=== PATIENT | female | born 1975 | race Caucasian/White ===

== ENCOUNTER → 2020-11-18 12:46 | Outpatient (BNVA) | payer OTHER, SELFPAY | PROVIDERS: PCP Internal Medicine Endocrinology, Diabetes & Metabolism; Visit Provider Student in an Organized Health Care Education/Training Program | DX: M79.7 Fibromyalgia (principal); Z87.891 Personal history of nicotine dependence; Z79.899 Other long term (current) drug therapy | CPT/HCPCS: 99212 ==

== ENCOUNTER → 2022-04-13 13:02 | Outpatient (BNVA) | payer OTHER, SELFPAY | PROVIDERS: PCP Internal Medicine; Visit Provider Nurse Practitioner Family | DX: M79.7 Fibromyalgia (principal); R51.9 Headache, unspecified; M25.50 Pain in unspecified joint; Z79.899 Other long term (current) drug therapy | CPT/HCPCS: 99212 ==

== ENCOUNTER 2023-07-05 14:33 | Outpatient (AMB) | payer OTHER, SELFPAY ==
[2023-07-05 14:36] VITALS: BP 118/66; PULSE 83; TEMP 36.6; O2SAT 97; BMI 32.5
--- NOTE | 2023-07-05 14:36 | A.OFFVIS_ITS ---
Intake Vital Signs 07/05/23 14:36 Height 5 ft 8 in Weight 214 lb 1.102 oz BMI 32.5 BP 118/66 Blood Pressure Location Rt brachial Position Sitting Pulse 83 Pulse Source Pulse Oximeter Temp 97.9 F Temp Source Skin Pulse Oximetry (%) 97 Intake Visit Reasons: FM Intake Note: Pt last seen by Yoana on 04/13/22, presents today to follow up on FM. Investigative Assistant Required: No Accompanied by: Self / Same As Patient Allergies cephalexin [Keflex] Allergy (Intermediate, Verified 07/05/23 14:38) rash metronidazole [Flagyl] Allergy (Intermediate, Verified 07/05/23 14:38) vomiting Sulfa (Sulfonamide Antibiotics) [SULFA (SULFONAMIDE ANTIBIOTICS)] Allergy (Intermediate, Verified 07/05/23 14:38) HIVES adhesive tape [ADHESIVE TAPE] Allergy (Unknown, Verified 07/05/23 14:38) RASH hydromorphone [From DILAUDID] Allergy (Unknown, Verified 07/05/23 14:38) SEVERE VOMITING latex [LATEX] Allergy (Unknown, Verified 07/05/23 14:38) RASH Penicillins [PENICILLINS] Allergy (Unknown, Verified 07/05/23 14:38) HIVES Medication List - Last Reconciled 07/05/23 by Rachna Sethi MD albuterol sulfate 90 mcg/actuation 2 puffs inhalation Q6H PRN diazepam 2 mg PO DAILY diclofenac sodium 1% (Voltaren) 2 grams topical QID diclofenac sodium 50 mg PO BID duloxetine (Cymbalta) 20 mg PO BEDTIME levothyroxine (Synthroid) 100 mcg PO DAILY lisdexamfetamine (Vyvanse) 40 mg PO DAILY methocarbamol 750 mg PO Q6H PRN paroxetine HCl 20 mg PO DAILY pregabalin 100 mg PO BEDTIME pregabalin 25 mg PO BID HPI HPI Comments History of Present Illness Details This is a 48-year-old female with fibromyalgia who presents for follow- up. She was last seen by Juli Lofton 04/2023. She is on duloxetine and Lyrica. She states that she takes the 100 mg capsule as well as the 2 X 25 mg capsules at night. States that the morning dose can make her drowsy. She continues to have diffuse pain usually in her neck, continues to have brain fog. She was evaluated by by [facility] and received numerous trigger point injections around her neck and shoulder area without much benefit. COUNTS INCLUDE 234 BEDS AT THE [facility] Medical History Fibromyalgia Family History Mother Rheumatoid arthritis Family/Other Multiple sclerosis Other Family history of thyroid disease Social History Alcohol intake: never Patient Tobacco Use Status: Former Tobacco user Years Smoked: qUIT 6 YEARS AGO Review of Systems ENT Reports neck pain Musc Reports myalgias, Reports arthralgias and Reports neck pain Psych Reports abnormal sleep pattern and Reports anxiety Physical Exam Vital Signs: Last Vital Signs Temp 97.9 F 07/05/23 14:36 Pulse 83 07/05/23 14:36 BP 118/66 07/05/23 14:36 Pulse Ox 97 07/05/23 14:36 BMI result Body Mass Index 32.5 Const General: cooperative, healthy appearing and comfortable Nutritional Appearance: obese Orientation/consciousness: patient oriented x3 Limitations: no limitations HEENT Head: Yes normocephalic and Yes atraumatic Mouth: moist mucous membranes Resp Effort & Inspection: normal respiratory effort and able to speak in complete sentences Auscultation: clear to auscultation bilaterally Cardio Rate: regular rate Rhythm: regular rhythm Neuro General: patient oriented x3 Extrem Other: No active synovitis Few fibromyalgia tender points Negative straight leg raise test bilaterally Negative Mojgan test bilaterally Assessment & Plan Assessment & Plan (1) Fibromyalgia: Code(s): M79.7 - Fibromyalgia Plan: This is a 48-year-old female who presents for evaluation of fibromyalgia. We had a long conversation about fibromyalgia today. Discussed management of fibromyalgia with patient. Is a noninflammatory, non-autoimmune central afferent processing disorder leading to a diffuse pain syndrome. Patient follows up regularly with a psychiatrist. I suggested evaluation by a psychotherapist. Try to follow sleep hygiene practices. Consider a referral for a sleep study by her PCP. Discuss CBT for sleep with psychotherapist. Patient would benefit from increased physical activity, patient stated that she was doing better when she was swimming at the gym. Currently she does circuit exercises which caused significant pain and fatigue for 3-4 days after exercise. I suggested going back swimming and aqua therapy Can continue with Cymbalta, prescribed by psychiatrist. Patient states that she takes the entire Lyrica dose at night. Will prescribe lyrica 150 mg nightly. Follow-up in 6 months Plan I spent 26 minutes reviewing patient's chart, evaluating patient, placing orders, counseling patient and documenting in the chart Medications: New pregabalin (Lyrica) 150 mg PO BEDTIME 180 caps 1RF Discontinued pregabalin Discontinued Reason: Doctor's Order 100 mg PO BEDTIME 30 caps 2RF M79.7 - Fibromyalgia pregabalin ; 100 mg capsule for bedtime use Discontinued Reason: Doctor's Order 25 mg PO BID 60 caps 2RF M79.7 - Fibromyalgia Coding Level of Care Code Est Pt Level 4 (45518) Diagnoses Fibromyalgia M79.7
== END 2023-07-05 15:20 | disposition home or self-care (01) ==
PROVIDERS: PCP Internal Medicine; Visit Provider Student in an Organized Health Care Education/Training Program
DX: M79.7 Fibromyalgia (principal)
CPT/HCPCS: 99214

== ENCOUNTER → 2023-07-05 14:33 | Outpatient (BNVA) | payer OTHER, SELFPAY | PROVIDERS: PCP Internal Medicine; Visit Provider Student in an Organized Health Care Education/Training Program | DX: M79.7 Fibromyalgia (principal) | CPT/HCPCS: 99212 ==

== ENCOUNTER 2024-01-03 14:34 | Outpatient (AMB) | payer OTHER, SELFPAY ==
[2024-01-03 14:35] VITALS: BP 112/82; PULSE 90; O2SAT 98; BMI 33.2
--- NOTE | 2024-01-03 14:35 | MHC.OFFVIS ---
Vital Signs 01/03/24 14:35 Height 5 ft 8 in Weight 218 lb 4.122 oz BMI 33.2 BP 112/82 Blood Pressure Location Lt brachial Position Sitting Pulse 90 Pulse Source Pulse Oximeter Pulse Oximetry (%) 98 Oxygen Delivery Method Room Air Intake Visit Reasons: FMS Intake Note: Patient last seen 07/05/23 presents today for follow up. Restorative Coordinator Required: No Accompanied by: Self / Same As Patient Allergies cephalexin [Keflex] Allergy (Intermediate, Verified 01/03/24 14:39) rash metronidazole [Flagyl] Allergy (Intermediate, Verified 01/03/24 14:39) vomiting Sulfa (Sulfonamide Antibiotics) [SULFA (SULFONAMIDE ANTIBIOTICS)] Allergy (Intermediate, Verified 01/03/24 14:39) HIVES adhesive tape [ADHESIVE TAPE] Allergy (Unknown, Verified 01/03/24 14:39) RASH hydromorphone [From DILAUDID] Allergy (Unknown, Verified 01/03/24 14:39) SEVERE VOMITING latex [LATEX] Allergy (Unknown, Verified 01/03/24 14:39) RASH Penicillins [PENICILLINS] Allergy (Unknown, Verified 01/03/24 14:39) HIVES Medication List - Last Reconciled 01/03/24 by Rachna Sethi MD albuterol sulfate 90 mcg/actuation 2 puffs inhalation Q6H PRN diazepam 2 mg PO DAILY diclofenac sodium 1% (Voltaren) 2 grams topical QID diclofenac sodium 50 mg PO BID duloxetine (Cymbalta) 20 mg PO BEDTIME levothyroxine (Synthroid) 100 mcg PO DAILY methocarbamol 750 mg PO Q6H PRN paroxetine HCl 20 mg PO DAILY pregabalin (Lyrica) 150 mg PO BEDTIME HPI Comments Details: This is a 48-year-old female with fibromyalgia who presents for follow-up. She was last seen by Juli Lofton 06/2023. She remains on duloxetine 20 mg daily and Lyrica 150 mg nightly. She uses the methocarbamol sparingly. She states that her muscle pains and fatigue have been much worse recently. She can not think of any trigger. Denies any recent stressor or increased activity. She states that she gets left lower back pain that intermittently radiates to her left lower extremity, she also has pain on the outer aspect of her right hip. States that she was diagnosed with psoriasis in the past and recently she has been having flare-ups affecting the outer aspect of her elbows. She has been doing somatic yoga recently for her neck and her hips which she feels does help. She has difficulty falling and staying asleep. He states that her son keeps having joint dislocation. She wants them to get tested for Saundra-Danlos. [facility] Medical History Psoriasis Fibromyalgia Family History Mother Rheumatoid arthritis Family/Other Multiple sclerosis Other Family history of thyroid disease Social History Alcohol intake: never Patient Tobacco Use Status: Former Tobacco user Years Smoked: qUIT 6 YEARS AGO Review of Systems ENT Reports neck pain Musc Reports back pain, Reports myalgias, Reports arthralgias, Reports neck pain, Reports radiating pain into limb and Reports stiffness Skin/Breast Reports lesions Psych Reports abnormal sleep pattern and Reports anxiety Physical Exam Vital Signs: Last Vital Signs Pulse 90 01/03/24 14:35 BP 112/82 01/03/24 14:35 Pulse Ox 98 01/03/24 14:35 Oxygen Delivery Method Room Air 01/03/24 14:35 BMI result Body Mass Index 33.2 Const General: cooperative, healthy appearing and comfortable Nutritional Appearance: obese Orientation/consciousness: patient oriented x3 Limitations: no limitations HEENT Head: Yes normocephalic and Yes atraumatic Mouth: moist mucous membranes Resp Effort & Inspection: normal respiratory effort and able to speak in complete sentences Auscultation: clear to auscultation bilaterally Cardio Rate: regular rate Rhythm: regular rhythm Skin Other: Very faint patches on both elbows Neuro General: patient oriented x3 Extrem Other: No active synovitis Few fibromyalgia tender points Negative straight leg raise test bilaterally Negative Mojgan test bilaterally right trochanteric bursa area tenderness with negative Frandy's test Assessment & Plan Assessment & Plan (1) Fibromyalgia: Code(s): M79.7 - Fibromyalgia Category: Medical Plan: This is a 48-year-old female who presents for evaluation of fibromyalgia. She remains on duloxetine 20 mg daily prescribed by psychiatrist, recently Paxil was added. Remains on Lyrica 150 mg nightly. Per patient her fibromyalgia symptoms have become a little more severe recently. Advised patient to get a sleep study to rule out obstructive sleep apnea. Continue Lyrica as prescribed. Refilled. Follow-up in 6 months (2) Trochanteric bursitis, right hip: Code(s): M70.61 - Trochanteric bursitis, right hip Category: Medical Plan: I provided patient with a printout of home exercises Plan I spent 26 minutes reviewing patient's chart, evaluating patient, placing orders, counseling patient and documenting in the chart Medications: Refilled pregabalin (Lyrica) 150 mg PO BEDTIME 90 caps 1RF Coding Level of Care Code Est Pt Level 4 (49611) Diagnoses Fibromyalgia M79.7 Trochanteric bursitis, right hip M70.61
== END 2024-01-03 15:11 | disposition home or self-care (01) ==
PROVIDERS: PCP Internal Medicine; Visit Provider Student in an Organized Health Care Education/Training Program
DX: M79.7 Fibromyalgia (principal); M70.61 Trochanteric bursitis, right hip
CPT/HCPCS: 99214

== ENCOUNTER → 2024-01-03 14:34 | Outpatient (BNVA) | payer OTHER, SELFPAY | PROVIDERS: PCP Internal Medicine; Visit Provider Student in an Organized Health Care Education/Training Program | DX: M79.7 Fibromyalgia (principal); M70.61 Trochanteric bursitis, right hip | CPT/HCPCS: 99212 ==

== ENCOUNTER 2024-12-04 15:08 | Outpatient (AMB) | payer OTHER, SELFPAY ==
[2024-12-04 15:13] VITALS: BP 112/66; PULSE 82; O2SAT 99; BMI 34.6
--- NOTE | 2024-12-04 15:13 | A.OFFVIS_ITS ---
Vital Signs 12/04/24 15:13 Height 5 ft 8 in Weight 227 lb 11.8 oz BMI 34.6 BP 112/66 Blood Pressure Location Lt brachial Position Sitting Pulse 82 Pulse Source Pulse Oximeter Pulse Oximetry (%) 99 Oxygen Delivery Method Room Air Intake Visit Reasons: FMS Intake Note: Patient was last seen in the office on 01/03/24. Presents today for follow up on fibromyalgia. Allergies cephalexin [Keflex] Allergy (Intermediate, Verified 12/04/24 15:19) rash metronidazole [Flagyl] Allergy (Intermediate, Verified 12/04/24 15:19) vomiting Sulfa (Sulfonamide Antibiotics) [SULFA (SULFONAMIDE ANTIBIOTICS)] Allergy (Intermediate, Verified 12/04/24 15:19) HIVES adhesive tape [ADHESIVE TAPE] Allergy (Unknown, Verified 12/04/24 15:19) RASH hydromorphone [From DILAUDID] Allergy (Unknown, Verified 12/04/24 15:19) SEVERE VOMITING latex [LATEX] Allergy (Unknown, Verified 12/04/24 15:19) RASH Penicillins [PENICILLINS] Allergy (Unknown, Verified 12/04/24 15:19) HIVES Medication List - Last Reconciled 12/04/24 by Tonya Mota MD albuterol sulfate 90 mcg/actuation 2 puffs inhalation Q6H PRN dextroamphetamine-amphetamine 10 mg ER 1 cap PO DAILY diazepam 2 mg PO DAILY diclofenac sodium 1% (Voltaren) 2 grams topical QID diclofenac sodium 50 mg PO BID duloxetine (Cymbalta) 20 mg PO BEDTIME levothyroxine (Synthroid) 100 mcg PO DAILY methocarbamol 750 mg PO Q6H PRN pregabalin 150 mg PO BEDTIME 90 days sertraline 50 mg PO DAILY HPI Comments Details: Patient is a 49-year-old female with hypothyroidism, depression/anxiety, psoriasis, asthma and fibromyalgia here today for follow up Interval History: Patient last seen 01/03/[address] Sethi. At that time she was on duloxetine 20 mg daily and Lyrica 150 mg nightly. Methocarbamol p.r.n.. At that visit she was complaining of acute worsening of her muscle pains and fatigue without any known trigger, recent stressor or increased activity. No active synovitis but had few fibromyalgia tender points. Light exercise and stretching was recommended and she was also advised to get a sleep study to rule out obstructive apnea. Today patient is hoping to change her medications. She says the pregabalin and the duloxetine give her a lot of brain fog I just looking for other medication options. Rheumatologic History: Fibromyalgia without evidence of inflammatory arthritis Current Rheumatology Medication(s): Pregabalin 150 mg b.i.d. Cymbalta 60mg nightly (given by another provider) PFSH Medical History Psoriasis Fibromyalgia Family History Mother Rheumatoid arthritis Family/Other Multiple sclerosis Other Family history of thyroid disease Social History Alcohol intake: never Patient Tobacco Use Status: Former Tobacco user Years Smoked: qUIT 6 YEARS AGO Review of Systems Const Details: Review of Systems Constitutional: Denies fever, chills, weight loss ENT: Denies vision changes, eye pain or eye redness, dental caries, dry mouth GI: Denies nausea, vomiting, diarrhea, abdominal pain, change in BM Pulm: Denies SOB, WORLEY, hemoptysis, wheezing Cards: Denies chest pain, palpitations Skin: Denies Raynaud's, rash, nail changes, photosensitivity, [employer]: Denies headaches, weakness, paresthesias, recurrent falls MSK: as per HPI All other systems reviewed and are unremarkable except noted above Physical Exam Vital Signs: BMI result Body Mass Index 34.6 Vital signs reviewed Physical Examination CONSTITUITIONAL Patient alert and cooperative. Well appearing and in no apparent painful distress HEENT Conjunctiva and sclera clear. ?Pupils equal round and reactive to light. ?No lymphadenopathy. ? CHEST/RESPIRATORY SYSTEM Normal respiratory effort and able to speak in complete sentences. ?Clear to auscultation bilaterally. ?No crackles, rales, rhonchi, wheezes heard. CARDIAC SYSTEM Regular rate and rhythm. ?S1 and S2 heard no murmurs. 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 No deformities noted. ?No synovitis noted to the MCPs, PIPs or DIPs. ?No tenderness to palpation of these joints. Wrists: ?Full range of motion at the wrists without pain. ?No tenderness to palpation or synovitis noted to the wrists. Elbows: Full range of motion without pain. No tenderness, weakness, swelling, increased warmth or erythema. Shoulders: Full range of motion without pain. No tenderness, weakness, swelling, increased warmth or erythema. Hips: Full range of motion without pain. Hip bursa: Tenderness to palpation Knees: ?Full range of motion. ?No tenderness, swelling, increased warmth or erythema.?No effusion or crepitations Ankles: Full range of motion. ?No tenderness, swelling, increased warmth or erythema.? Feet: ?Negative squeeze test. ?No tenderness to palpation or swelling of the M TPs. Tender points:?Tenderness to palpation of the bilateral trapezius, supraspinatus, greater trochanters, anterior costochondral junctions, bilateral gluteal areas, bilateral suboccipital muscle insertions SKIN Skin intact without rashes. Results Reviewed Results Reviewed: No recent labs to review Assessment & Plan Assessment & Plan (1) Fibromyalgia: Code(s): M79.7 - Fibromyalgia Category: Medical Plan: #Fibromyalgia Patient is a 49-year-old female with psoriasis now complicated by fibromyalgia. Previously evaluated for psoriatic arthritis however there is no evidence of dactylitis, enthesitis or inflammatory arthritis. She is currently on pregabalin and duloxetine for her fibromyalgia however is requesting a change of medications. Tried gabapentin in the past but this was associated with side effects. Discussed milnacipran and 1 so weak naltrexone and patient is willing to try these medications. Plan - Naltrexone 25mg once a week - Milnacipran: 12.5 mg daily for 1 week then 12.5 mg twice a day for 1 week then 25 mg twice a day for 1 week then 50 mg twice a day as maintenance - RTC 3 months - Stop pregabalin - Stop cymbalta Plan I spent 32 minutes reviewing the record and labs, taking a history, examining the patient, discussing the treatment plan, ordering diagnostic work up and documenting in the medical record Medications: New milnacipran After completing the 2 weeks on the 12.5mg tablets and then 1 week on the 25mg tablets Take 1 tablet twice a day as a maintenance dose 50 mg PO BID 180 tabs 1RF M79.7 - Fibromyalgia naltrexone 25 mg (1/2 x 50 mg) PO QWEEK 90 days 6 tabs 1RF M79.7 - Fibromyalgia milnacipran Take one tablet daily for 1 week then one tablet twice a day for 1 week 12.5 mg PO BID 21 tabs 0RF M79.7 - Fibromyalgia milnacipran 25 mg PO BID 14 tabs 0RF M79.7 - Fibromyalgia Discontinued pregabalin Discontinued Reason: Doctor's Order 150 mg PO BEDTIME 90 days 90 caps 1RF M79.7 - Fibromyalgia Coding Level of Care Code Est Pt Level 4 (42967) Complex EM visit Add On G2211 Diagnoses Fibromyalgia M79.7
--- OUTSIDE RECORDS SUMMARY | 2024-12-04 18:08 | XMS_ITS | Data Portability ---
Author Organization [facility] Pain Manage ent, PAIN OFFICE Address [address],[facility] [address] [place] [address] Assessment Encounter Date Assessment Date Assessment LastModified by Organization Details LastModified Time 01/26/2017 01/26/2017 Danyelle Johnson is a 41 year old woman with complaints of neck pain radiating into left upper back . On exam, she has trigger points in her left trapezius muscle. MRI Cervical spine shows stable minimal degenerative changes at C 5-6 and C 6-7 levels . She has trialed physical therapy with some pain benefit . She is currently being seen at [facility] and receiving injections. I have advised her to continue with treatments at one pain center. Her cervical MRI is relatively benign. Hence I do not think a trial of cervical epidural steroid injection is warranted at this time. [email or web address] Not available 03/09/2017 15:41:25 Plan of Treatment Reminders Order Date Submit Date Provider Last Modified By Organization Details Last Modified Time Details Appointments None record ed. Lab None record ed. Referral None record ed. Procedures None record ed. Surgeries None record ed. Imaging None record ed. Medication Orders None record ed. Patient TargetsNo targets recorded. Patient Instructions Encounter Date Encounter Id Patient Instructions Last Modified By Organization Details Last Modified Time 01/26/2017 [id number] She was advised to continue with activities as tolerated . [email or web address] Not available 03/09/2017 15:41:42 Reason for Referral None Reported. Procedures Surgical History Date Name Laterality Status Provider Name and Address Organization Details Recorded Time Tonsillectomy completed Karena Petty MA [facility] 01/26/2017 14:06:14 Imaging Results None recorded. Procedure Notes None recorded. Medical Equipment None Reported. Allergies Allergen ID Allergen Name Allergen Category Reaction Reaction Severity Criticality Documentation Date Start Date Code Code System Note Provider Name and Address Organization Details Recorded Time 92045 Product containin g penicilli n (product) medicatio n hives Not available Not available 01/26/2017 19677 8001 SNOMED Karena turcios [facility] 7 13:57:47 76458 Substance with sulfonami de structure and antibacte rial mechanism of action (substanc e) medicatio n hives Not available Not available 01/26/2017 31660 8003 SNOMED Karena turcios, [facility] 7 13:58:06 Medications Name Sig Start Date Stop Date Status Note LastModified by Organization Details LastModified Time bupropion HCl SR 150 mg tablet,12 hr sustained-r elease 01/26 completed Not Available Not Available Not Available nabumetone 750 mg tablet 01/26 completed Not Available Not Available Not Available ibuprofen 800 mg tablet active Not Available Not Available Not Available tizanidine 4 mg tablet TAKE 1 Tablet BY MOUTH THREE TIMES DAILY NEEDED FOR MUSCLE SPASMS active Not Available Not Available No t Available prednisone 20 mg tablet TAKE 2 TABLETS BY MOUTH DAILY WITH FOOD FOR 7 DAYS 01/26 completed Not Available Not Available Not Available ciprofloxac in 500 mg tablet TAKE 1 TABLET BY MOUTH 2 TIMES DAILY 01/26 completed Not Available Not Available Not Available levothyroxi ne 100 mcg tablet TAKE 1 TABLET BY MOUTH DAILY. active Not Available Not Available No t Available lorazepam 0.5 mg tablet TAKE 1 TABLET BY MOUTH EVERY 6 HOURS NEEDED ANXIETY active Not Available Not Available No t Available paroxetine 30 mg tablet TAKE 1 TABLET BY MOUTH EVERY MORNING 01/26 completed Not Available Not Available Not Available paroxetine 20 mg tablet TAKE 1 TABLET BY MOUTH EVERY MORNING. active Not Available Not Available No t Available gabapentin 300 mg capsule 01/26 completed Not Available Not Available Not Available gabapentin 100 mg capsule 01/26 completed Not Available Not Available Not Available lysine 500 mg tablet Take every day by oral route. active Not Available Not Available No t Available diazepam 5 mg tablet 01/26 completed Not Available Not Available Not Available tinidazole 500 mg tablet TAKE 4 TABLETS BY MOUTH ONCE 01/26 completed Not Available Not Available Not Available Lyrica 75 mg capsule TAKE 1 TO 2 CAPSULES BY MOUTH EVERY EVENING 01/26 completed Not Available Not Available Not Available Ventolin HFA active Not Available Not Available Not Available diclofenac 1 % topical gel active Not Available Not Available Not Available Multi Vitamin active Not Available Not Available Not Available Vitals Date Recorded Heart rate Oxygen saturation Oxygen saturation in Arterial blood by Pulse oximetry Body height Body weight Body mass index (BMI) Systolic blood pressure Diastolic blood pressure Provider Name and Address Organization Details Last Updated DateTime 7 77 /min 98 % 98 % 172.72 cm 732088. 17 g 36.5 kg/m2 129 mm[Hg] 85 mm[Hg] Karena Petty [facility] Pain Management 7 13:55:34 Social History Question Answer Notes LastModified by Organizat ion Details LastModified Time Tobacco Smoking Status Former Smoker Quit x 2 months Not Available [employer] 06/26/2020 03:16:12 What Is Your Level Of Alcohol Consumption? Occasional [id number] Information not available 06/26/2020 Are You Currently Employed? Yes [employer] [id number] Information not available 06/26/2020 Which Illicit Or Recreational Drugs Have You Used? 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 With Others Children Information not available 01/26/2017 Marital Status Informatio n not available 01/26/2017 How Many Years Have You Smoked Tobacco? 5 [id number] Information not available 06/26/2020 Sex: Unknown Functional Status None recorded. Mental Status None recorded. Family History Relationship Description Onset Age of this Age Resolved Age Notes LastModified by Organization Details LastModified Time Mother Rheumatoid arthritis Not available 2016 14:03:03 Father Malignant neoplastic disease Pancre atic Not available 01/26/2017 14:03:28 Medical History Condition Response Hypothyroidism Y Arthritis Y Headache Y Asthma Y Gynecological HistoryNo gynecological history recorded. Obstetrics History GPAL:G 0 P 0 0 0 0 Past Encounters Encounter ID Performer Location Encounter Start Date Encounter Closed Date Diagnosis/Indication Diagnosis SNOMED-CT Code Diagnosis ICD10 Code Diagnosis Note [id number] Liliana Merino MD PAIN OFFICE [address] [facility],[address] [place] [address] 01/26/2017 13:24:53 02/16/2017 13:54:26 Degeneration of cervical intervertebral disc 60047695 M50.30 Cervical radiculopathy 43029018 M54.12 Muscle pain 44517477 M79 .1 Health Concerns Section Related Observation LastModified by Organization Detai ls LastModified Time None Recorded Concern Status LastModified by Organization Details LastModified Time None Recorded Advance Directives Directive None Recorded Payers Encounter Date Sequence Insurance Name Policy Number Policy Olvera Covered Member ID Olvera Member ID Guarantor Name 01/26/2017 1 [facility] [id number] Danyelle Johnson [id number] Danyelle Johnson 01/26/2017 1 [place] [facility] Danyelle Johnson [id number] Danyelle Johnson Notes Date Note Type Note Provider Name and Address Organization Details Recorded Time 01/26/2017 text/html Danyelle Johnson is a 41 year old woman with complaints of neck pain radiating into left upper back . The pain started after a fall at home in August 2013. She was catching a person who was feeling unwell at home and had a pull on the neck which started her pain. She describes the pain as a sharp stabbing pain in her neck which radiates into her left shoulder and the pain is at times aching and throbbing in nature. Current pain level is 8-10/10. Pain is aggravated by turning the neck and using the left arm. Nothing relieves the pain. She has no history of numbness or weakness. She has no history of bladder or bowel incontinence.She had physical therapy at [facility] in [place] with minimal pain benefit.She had facet joint injections at [facility] and then trigger point injections in November 2016.She has also trialed lyrica which helped .MRI Cervical spine shows stable minimal degenerative changes at C5-6 and C6-7 levels Liliana Merino MD [address] , [address], [place], [address], [place] [facility] 03/15/2017 08:36:38 OBGyn Episode No OBEpisode recorded.
--- OUTSIDE RECORDS SUMMARY | 2024-12-04 18:08 | XMS_ITS | Clinical Summary ---
Author Organization [facility] Address [address] [place], [place] [id number] Phone Care Team Providers Care Coil Placer Name Role Phone Yadira Marcano MD Primary Care Provider [phone] Social History Tobacco Use Types Packs/Day Years Used Date Smoking Tobacco: Never Assessed Education Answer Date Recorded Are you interested in more education? Not on neli e 01/07/2023 Are you concerned about learning? Not on file 01/07/2023 No 01/07/2023 No 01/07/2023 Digital Access Answer Date Recorded No 02/07/2023 No 02/07/2023 Reliable internet access at home? Not on file 02/07/2023 Device with a working camera? Not on file Sex and Gender Information Value Date Recorded Sex Assigned at Not on file Gender Identity Not on file Sexual Orientation Not on file Plan of Treatment Not on file Medical Devices Not on file Care Teams Coil Placer Relationship Specialty Start Date End Date Yadira Marcano MD [address] [place] [address] PCP - General Internal Medicine 12/23/20 Additional Source Comments The information contained in this document represents components of the legal health record. It is not the complete legal health record.[facility]
--- OUTSIDE RECORDS SUMMARY | 2024-12-04 18:09 | XMS_ITS | Encounter Summary ---
Author Organization [facility] Address [address] [place] [address] Phone Care Team Providers Care Boat Outfitting Supervisor Name Role Phone Yadira Marcano MD Primary Care Provider [phone] Encounter Details Date Type Department Care Team (Latest Contact Info) Description 01/01/2021 Ancillary Orders [facility] [address] [place] [address] Nikhil Castillo DO [address] [place] [address] [email or web address] SOB (shortness of breath) Social History Tobacco Use Types Packs/Day Years Used Date Smoking Tobacco: Never Assessed Sex and Gender Information Value Date Recorded Sex Assigned at Not on file Gender Identity Not on file Sexual Orientation Not on file documented as of this encounter Plan of Treatment Not on file documented as of this encounter Results * Holter Monitor 24 Hours (01/01/2021 8:31 AM EDT) Anatomical Region Laterality Modality Heart Other Narrative 01/01/2021 12:22 PM EDT Holter monitor report Indication shortness of breath Findings: The underlying rhythm is sinus rhythm with average heart rate 77 bpm, minimum rate 47 bpm, maximal heart rate 121 bpm. There were very rare isolated PVCs. There was no significant atrial ectopy. No abnormal arrhythmias. Conclusion: Normal Holter monitor. Procedure Note Emory Rider MD - 01/01/2021 Holter monitor report Indication shortness of breath Findings: The underlying rhythm is sinus rhythm with average heart rate 77 bpm,minimum rate 47 bpm, maximal heart rate 121 bpm. There were very rare isolated PVCs. There was no significant atrial ectopy. No abnormal arrhythmias. Conclusion: Normal Holter monitor. Nikhil A Arcoleo DO [facility] ORDER[facility]LES documented in this encounter Visit Diagnoses Diagnosis SOB (shortness of breath) Shortness of breath SOB (shortness of breath) Shortness of breath documented in this encounter Care Teams Boat Outfitting Supervisor Relationship Specialty Start Date End Date Yadira Marcano MD [address] [place] [address] PCP - General Internal Medicine 12/23/20 documented as of this encounter Additional Source Comments The information contained in this document represents components of the legal health record. It is not the complete legal health record.[facility]
--- OUTSIDE RECORDS SUMMARY | 2024-12-04 18:09 | XMS_ITS | Data Portability ---
Author Organization [place] - [facility], Allergy Address [address] [address] Care Team Providers Care Asbestos Wire Finisher Name Role Phone GIO SHAWE Primary Care Provider [phone] Assessment Encounter Date Assessment Date Assessment LastModified by Organization Details LastModified Time 09/26/2024 09/26/2024 Patient with prior history of tonsillectomy, allergy and mild intermittent asthma presents with discomfort left tonsil region. She was noted several years ago to have a residual lymphoid follicle. Examination shows a 1 cm follicle in the tonsil fossa and some small prominent lymphoid tissue in the glossotonsillar sulcus. No ulceration or exudate. I suspect this is likely reactive. I have suggested we switch her allergy regimen to cetirizine and budesonide and arrange for repeat allergy testing. If she has persistent difficulties we can consider an exam under anesthesia and biopsy. Office biopsy limited by moderate gag reflex alba Not available 09/26/2024 08:52:42 Plan of Treatment Reminders Order Date Submit Date Provider Last Modified By Organization Details Last Modified Time Details Appointments Test Results 15 2024 08:30A M MUSHTAQ WORKMAN MD Not available Not available Not available Lab None recorded. Referral None recorded. Procedures allergy testing, skin prick (PROC) 2024 025 [email or web address] Not available 10/17/2024 12:17:48 intraderm al allergy skin testing (PROC) 2024 025 [email or web address] Not available 10/17/2024 12:17:48 pulmonary function test procedure (PROC) 2024 025 [email or web address] Not available 10/17/2024 12:17:48 pulse oximetry (PROC) 2024 025 [email or web address] Not available 10/17/2024 12:17:48 Surgeries laryngosc opy, direct operative with operating microscop e or telescope with biopsy (SURG) 2024 025 [email or web address] Not available 09/26/2024 10:05:59 Imaging None recorded. Medication Orders budesonid e 32 mcg/actua tion nasal spray 2024 025 [id number], [address] [place], [address], 09/26/2024 08:54:12 cetirizin e 10 mg tablet 2024 025 [id number], [address] [place], [address], 09/26/2024 08:54:12 Patient TargetsNo targets recorded. Patient InstructionsNo instructions recorded. Reason for Referral None Reported. Results Created Date Observation Date Name Description Value Unit Range Abnormal Flag Note LastModifiedBy Organization Detail LastModifiedTime 11/16/1911/05/2024 clini jonny photo * No observ ation record ed. [email or web address] Not Available 03/2025 09:32:41 Result Notes None recorded. 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; Note: Date Diagnosed: 02/21/2018 10:40 AM (D10.4) Not Available [facility] 4 03:22:44 Mass of neck 785039358 Active 2017 Localized swelling, mass and lump, neck; Note: Date Diagnosed: 02/21/2018 10:41 AM (R22.1) Not Available [facility] 4 03:22:44 Neck swelling 654663490 Active 2017 Localized swelling, mass and lump, neck; Note: Date Diagnosed: 02/21/2018 10:41 AM (R22.1) Not Available [facility] 4 03:22:44 Non-toxic uninodula r goiter 617190243 Active 2017 Nontoxic single thyroid nodule; Note: Date Diagnosed: 02/21/2018 10:40 AM (E04.1) Not Available [facility] 4 03:22:43 Allergic rhinitis 03766452 Active 2024 MUSHTAQ STOCK MD [address] [facility],[place] [address], [place], [address] , [facility] - [facility] 5 08:52:53 Lesion of pharynx Active 2024 MUSHTAQ STOCK MD [address] [place] [address],[place] [address], [place], [place], [address] , [facility] - [facility] 5 08:53:00 Mild intermitt ent asthma 865477818 Active 2024 MUSHTAQ STOCK MD [address] [place] [address],[place] [address], [place], [address] , [facility] - [facility] 5 08:53:05 Problem Notes None recorded. Procedures Surgical History Date Name Laterality Status Provider Name and Address Organization Details Recorded Time 11/05/19 Excise pharynx lesion completed MUSHTAQ AYALA MD [address] [place] [address],[place] [address], [place], [address], [facility] 11/05/2024 11:38:43 11/05/19 25 Laryngoscopy w/bx & op scope completed MUSHTAQ AYALA MD [address] [place] [address],[place] [address], [place], [address], [facility] 11/05/2024 11:38:53 Imaging Results Imaging Date Name Status LastModified by Organiz ation Details LastModified Time 11/05/2024 clinical photo* completed [email or web address] Information not available 11/15/2024 09:32:41 Procedure Notes None recorded. Medical Equipment None Reported. Allergies Allergen ID Allergen Name Allergen Category Reaction Reaction Severity Criticality Documentation Date Start Date Code Code System Note Provider Name and Address Organization Details Recorded Time 864695 Product containin g penicilli n (product) medicatio n hives other moderate Not available Not available 01/23/2024 38245 8001 SNOMED Gil Reyes null, [place] - [facility] 5 08:37:12 641796 Substance with sulfonami de structure and antibacte rial mechanism of action (substanc e) medicatio n hives other moderate Not available Not available 01/23/2024 20966 8003 SNOMED Gil Reyes null, [place] - [facility] 5 08:37:12 965931 Flagyl medicatio n hives moderate Not available 09/26/2024 80401 6 RxNorm Gil Reyes null, [place] - [facility] 5 08:37:12 574646 Dilaudid medicatio n vomiting severe Not available 09/26/2024 79181 3 RxNorm Gil Reyes null, [place] - [facility] 5 08:37:12 Medications Name Sig Start Date Stop Date Status Note LastModified by Organization Details LastModified Time cyclobenz aprine 10 mg tablet TAKE 1 TABLET BY MOUTH AT BEDTIME NEEDED FOR MUSCLE SPASMS. 09/26 completed Not Available Not Available Not Available budesonid e 32 mcg/actua tion nasal spray Take 2 sprays every day by nasal route. 2024 active Not Available Not Available Not Avai lable cetirizin e 10 mg tablet Take 1 tablet every day by oral route in the evening. 2024 active Not Available Not Available Not Avai lable meloxicam 15 mg tablet TAKE 1 TABLET BY MOUTH EVERY DAY DIRECTED 09/26 completed Not Available Not Available Not Available ondansetr on HCl 4 mg tablet TAKE 1 TABLET BY MOUTH EVERY 8 HOURS NEEDED FOR NAUSEA FOR UP TO 7 DAYS. 09/26 completed Not Available Not Available Not Available prednison e 20 mg tablet TAKE 3 TABS FOR 3 DAYS, TAKE 2 TABS FOR 3 DAYS, TAKE 1 TAB FOR 3 DAYS 09/26 completed Not Available Not Available Not Available Synthroid 100 mcg tablet TAKE 1 TABLET BY MOUTH DAILY. SYNTHROI D BRAND ONLY, NO ALTERNAT ES active Not Available Not Available No t Available amitripty line 25 mg tablet 01/28 completed Medicati on ID: [id number] D uration Value: 30 Brand Name: amitript yline Se nd Method: E-Prescr ibed Sub s Allowed: subs OK Speci al Instruct ion: TAKE 1 TABLET BY MOUTH TWICE A DAY Medi cationGe nericNam e: amitript yline Not Available Not Available Not Available diazepam 2 mg tablet 01/28 completed Medicati on ID: [id number] B rand Name: diazepam Send Method: E-Prescr ibed Sub s Allowed: subs OK Medic ationGen ericName : diazepam Not Available Not Available Not Available paroxetin e 20 mg tablet TAKE 1 TABLET BY MOUTH EVERY DAY 09/26 completed Not Available Not Available Not Available dextroamp hetamine- amphetami ne ER 10 mg 24hr capsule,e xtend release TAKE 1 CAPSULE BY MOUTH EVERY DAY active Not Available Not Available No t Available diclofena c sodium 50 mg tablet,de layed release 01/28 completed Medicati on ID: [id number] B rand Name: diclofen ac sodium S end Method: E-Prescr ibed Sub s Allowed: subs OK Medic ationGen ericName : diclofen ac sodium Not Available Not Available Not Available paroxetin e 40 mg tablet TAKE 1 TABLET BY MOUTH EVERY DAY 09/26 completed Not Available Not Available Not Available sertralin e 50 mg tablet TAKE 1 TABLET BY MOUTH DAILY active Not Available Not Available No t Available dextroamp hetamine- amphetami ne ER 15 mg 24hr capsule,e xtend release TAKE 1 CAPSULE BY MOUTH EVERY DAY 09/26 completed Not Available Not Available Not Available escitalop aliya 10 mg tablet 01/28 completed Medicati on ID: [id number] B rand Name: escitalo pram oxalate Send Method: E-Prescr ibed Sub s Allowed: subs OK Medic ationGen ericName : escitalo pram oxalate Not Available Not Available Not Available nitrofura ntoin monohydra te/macroc rystals 100 mg capsule TAKE 1 CAPSULE BY MOUTH TWICE A DAY FOR 7 DAYS 09/26 completed Not Available Not Available Not Available duloxetin e 20 mg capsule,d elayed release TAKE 1 CAPSULE BY MOUTH ONCE DAY 09/26 completed Not Available Not Available Not Available pregabali n 25 mg capsule 01/28 completed Medicati on ID: [id number] B rand Name: pregabal in Send Method: E-Prescr ibed Sub s Allowed: subs OK Medic ationGen ericName : pregabal in Not Available Not Available Not Available pregabali n 150 mg capsule TAKE 1 CAPSULE BY MOUTH EVERY DAY AT BEDTIME FOR 90 DAYS active Not Available Not Available No t Available Lyrica 100 mg capsule 150 mg every day by oral route. 2021 active Not Available Not Available Not Avai lable Jen 09/26 completed Medicati on ID: [id number] B rand Name: jen Send Method: E-Prescr ibed Sub s Allowed: subs OK Medic ationGen ericName : jen Not Available Not Available Not Available Cymbalta 2021 active Medicati on ID: [id number] B rand Name: Cymbalta Send Method: E-Prescr ibed Sub s Allowed: subs OK Medic ationGen ericName : Cymbalta Not Available Not Available Not Available omeprazol e 20 mg tablet,de layed release by mouth 09/25 completed Medicati on ID: [id number] P rescribe d By Name: Moy Hansen MD Brand Name: omeprazo le Send Method: E-Prescr ibed Sub s Allowed: subs OK Speci al Instruct ion: Take 1 tablet by mouth every day before breakfas t Medica tionGene ricName: omeprazo le Not Available Not Available Not Available Flonase Allergy Relief active Not Available Not Available Not Available Vitals Date Recorded Body height Body mass index (BMI) Body weight Provider Name and Address Organization Details Last Updated DateTime 09/26/2024 172.72 cm 34.1 kg/m2 087389.69 g Gil Reyes [place] - [facility] 09/26/2024 08:43:43 Date Recorded Systolic blood pressure Diastolic blood pressure Provider Name and Address Organization Details Last Updated DateTime 09/26/2024 118 mm[Hg] 74 mm[Hg] MUSHTAQ AYALA MD [address] [place] [address], [address], [place] - [facility] 09/26/2024 08:57:24 Social History None recorded. Functional Status None recorded. Mental Status None recorded. Family History Nothing Reported. Medical History Condition Response Allergies/Hayfever Y Heart Problems N Anxiety Y Tonsil Infections N Emphysema N Migraines Y Thyroid Problems Y Glaucoma N Depression Y COPD N Developmental Delay N Nasal or Sinus Problems Y Anemia N Immune System Disorder N Anesthesia Complications N Heart Attack (ND) N Other Skin Condition Y Diabetes N Rhinitis N Bleeding Disorder N Food Allergy N Arthritis Y Hearing Loss N Hyperlipidemia N Cancer N Stroke N Dementia N Nasal polyps N Asthma Y Sleep Disorder N GERD/Reflux N High Cholesterol Y Liver Disease N Headaches Y Fibromyalgia Y Hypertension N Speech Delay N Kidney Disease N Gynecological HistoryNo gynecological history recorded. Obstetrics History GPAL:G 0 P 0 0 0 0 Past Encounters Encounter ID Performer Location Encounter Start Date Encounter Closed Date Diagnosis/Indication Diagnosis SNOMED-CT Code Diagnosis ICD10 Code Diagnosis Note [id number] MUSHTAQ STOCK MD [facility] [address] [address] 09/26/2024 08:15:03 09/26/2024 08:58:24 Allergic rhinitis 15057138 J30.9 Lesion of pharynx 619262 9376 2102 J39.2 Mild inter mittent asthma 910940473 J45.20 Health Concerns Section Related Observation LastModified by Organization Detai ls LastModified Time None Recorded Concern Status LastModified by Organization Details LastModified Time None Recorded Advance Directives Directive None Recorded Payers Encounter Date Sequence Insurance Name Policy Number Policy Olvera Covered Member ID Olvera Member ID Guarantor Name 09/26/2024 1 [facility] (MEDICAID REPLACEMENT - O) [id number] Danyelle Johnson [id number] Danyelle Johnson Notes Date Note Type Note Provider Name and Address Organization Details Recorded Time 09/26/2024 text/html Patient with history of environmental allergies for which she takes loratadine and occasional fluticasone nasal spray seen for an opinion regarding lymphoid follicle on the left tonsil region. This was noted several years ago by Dr. Hansen she feels her throat is irritated. No ear pain or swallowing issues. Hx of mild intermittent asthma No fever, chills or night sweatsNon-smoker MUSHTAQ AYALA MD [address] [place] [address], [place], [address], [place] - [facility] 09/26/2024 13:27:39 OBGyn Episode No OBEpisode recorded.
--- OUTSIDE RECORDS SUMMARY | 2024-12-04 18:09 | XMS_ITS | Continuity of Care Document ---
Author Organization [facility] ter Address [address] [place] [id number]- Care Team Providers Care Anatomic Pathologist Name Role Phone Not on Staff, PCP Primary Care Physician Unavail able Encounter [facility] Date(s): 11/05/24 - 11/05/[address] [id number] Discharge Disposition: A-D/C Home Attending Physician: Nura Benson MD Admitting Physician: Nura Benson MD Referring Physician: Nura Benson MD Encounter Type: Disch Daystay Allergies, Adverse Reactions, Alerts Substance Criticality Severity Reaction Reaction Severity Status penicillin Active sulfADIAZINE Active Dilaudid Unable to assess criticality Persistent Moderate Active Latex Active Immunizations Given and Recorded Vaccine Date Status Refusal Reason FluLaval (oldterm) 1 06/15/12 Given hepatitis B adult vaccine 2 11/28/11 Given hepatitis B adult vaccine 05/27/11 Given hepatitis B adult vaccine 3 04/22/11 Given influenza virus vaccine, inactivated 05/27/11 Give n influenza virus vaccine, inactivated 09/11/10 Give n Measles/Mumps/Rubella Virus Vaccine 04/22/11 Given tetanus-diphtheria toxoids (Td) 07/22/10 Given 1Admin Note: Gave the VIS 03-12-2012 2Admin Note: # 3 3Admin Note: 1st of 3 injections Medications amphetamine-dextroamphetamine 10 mg oral capsule, extended release TAKE 1 CAPSULE BY MOUTH EVERY DAY Start Date: 11/01/24 Status: Ordered Repeat number: 1 DiphenhydrAMINE = 12.5 mg, By Mouth, Daily at bedtime, PRN as needed for sleep, 0 Refills, Maintenance, 11/25/20 8:26:00 PM EDT, Partial fill upon patient request if the prescription is for a schedule II opioid drug. Start Date: 11/25/20 Status: Ordered Repeat number: 1 duloxetine 20 mg oral enteric coated capsule TAKE 1 CAPSULE BY MOUTH ONCE DAY Start Date: 11/01/24 Status: Ordered Repeat number: 1 famotidine 20 mg oral tablet 20 mg, 1, tablet, By Mouth, Daily at bedtime, # 30 tablet, Refills 0, Tot. Refills 0, Maintenance, 08/17/20 9:19:00 PM EST, Route to Pharmacy Electronically, [facility]/pharmacy #[id number], Partial fill upon patient request if the prescription is for a schedule II opioid drug., 173, cm, 08/17/20 17:56:00 EST, Height, 103.6, kg, 08/17/20 17:56:00 EST, Dry Weight Start Date: 08/17/20 Status: Ordered Quantity: 30.0 Unit: tablet Repeat number: 1 levothyroxine 0.088 mg oral tablet 1 tablet = 0.088 mg, By Mouth, Daily, # 30 tablet, 3 Refills, Maintenance, 07/31/12 3:39:08 PM EST,Tablet, [facility]/pharmacy #[id number] Start Date: 07/31/12 Stop Date: 11/28/12 Status: Ordered Quantity: 30.0 Unit: tablet Repeat number: 4 Lexapro 10 mg oral tablet 1 tablet = 10 mg, By Mouth, Daily, # 30 tablet, 0 Refills, Maintenance, 07/09/21 10:20:00 AM EDT, Tablet, Partial fill upon patient request if the prescription is for a schedule II opioid drug. Start Date: 07/09/21 Status: Ordered Quantity: 30.0 Unit: tablet Repeat number: 1 Lyrica 100 mg oral capsule 1 capsule = 100 mg, By Mouth, Daily at bedtime, # 60 capsule, 0 Refills, Maintenance, 08/17/20 6:02:00 PM EST, Capsule, Partial fill upon patient request if the prescription is for a schedule II opioid drug. Start Date: 08/17/20 Status: Ordered Quantity: 60.0 Unit: capsule Repeat number: 1 Lyrica 25 mg oral capsule 1 capsule = 25 mg, By Mouth, Daily, 0 Refills, Maintenance, 08/17/20 6:02:00 PM EST, Capsule, Partial fill upon patient request if the prescription is for a schedule II opioid drug. Start Date: 08/17/20 Status: Ordered Repeat number: 1 Melatonin = 3 mg, By Mouth, Daily at bedtime, 0 Refills, Maintenance, 11/25/20 8:25:00 PM EDT, Partial fill upon patient request if the prescription is for a schedule II opioid drug. Start Date: 11/25/20 Status: Ordered Repeat number: 1 ProAir HFA 90 mcg/inh inhalation aerosol with adapter 2 puffs, Inhalation, 4 times a day, PRN Wheezing/Shortness of Breath, # 1 each, 1 Refills, Maintenance, wheezing, 06/15/12 3:57:32 PM EDT, [facility]/pharmacy #[id number] Start Date: 06/15/12 Stop Date: 08/14/12 Status: Ordered Quantity: 1.0 Unit: each Repeat number: 2 sertraline 50 mg oral tablet TAKE 1 TABLET BY MOUTH DAILY Start Date: 11/01/24 Status: Ordered Repeat number: 1 Valium 2 mg oral tablet 1 mg, 0.5, tablet, By Mouth, Daily at bedtime, Refills 0, Maintenance, 07/09/21 10:21:00 AM EDT, Partial fill upon patient request if the prescription is for a schedule II opioid drug. Start Date: 07/09/21 Status: Ordered Repeat number: 1 Problem List Condition Confirmation Course Effective Dates Status H ealth Status Informant Attention deficit hyperactivity disorder Confirmed Active Colitis Confirmed Active FH 1, 2 Confirmed 07/22/10 Active Hypothyroidism Confirmed Active Obese class I Confirmed Active Ovarian failure Confirmed Active SH - Social history 3 Confirmed 07/22/10 Active 1grandfather diagnosed with Parkinson's 2rheumatoid arthritis (mother), emphysema (father who smokes), father has osteoarthritis, grandfather with colon cancer and basal cell cancer, grandmother with oat cell cancer and aunt with 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,, 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, ex-smoker, she does not drink alcohol Vital Signs Most recent to oldest [Reference Range]: 1 2 3 Height 172.7 cm (11/05/24 10:06 AM) 172.7 cm (11/01/24 4:18 PM) Weight 103 kg (11/05/24 10:06 AM) 101.6 kg (11/01/24 4:18 PM) Oxygen Saturation [94-100 %] 98 % (11/05/24 12:15 PM) 97 % (11/05/24 12:00 PM) 93 % *L* (11/05/24 11:45 AM) Pulse Rate [55-90 bpm] 73 bpm (11/05/24 10:06 AM) Body Mass Index [18.5-24.99 kg/m2] 34.53 kg/m2 *>HHI* (11/05/24 10:06 AM) 34.07 kg/m2 *>HHI* (11/01/24 4:18 PM) Blood Pressure [90-138/55-84 mm Hg] 132/82mm Hg (11/05/24 12:15 PM) 130/83mm Hg (11/05/24 12:00 PM) 131/85mm Hg (11/05/24 11:45 AM) Respiratory Rate [16-30 br/min] 10 br/min *L* (11/05/24 12:15 PM) 10 br/min *L* (11/05/24 12:00 PM) 10 br/min *L* (11/05/24 11:45 AM) Temperature [96.8-100.4 DegF] 97.7 DegF (11/05/24 11:35 AM) 98.2 DegF (11/05/24 10:06 AM) Liters per Minute 2 L/min (11/05/24 12:00 PM) 2 L/min (11/05/24 11:45 AM) Mode of Delivery (Oxygen) Room air (11/05/24 12:15 PM) Nasal cannula (11/05/24 12:00 PM) Nasal cannula (11/05/24 11:45 AM) Blood pressure sites Arm, right (11/05/24 10:06 AM) Temperature Route Temporal (11/05/24 11:35 AM) Temporal (11/05/24 10:06 AM) Dry Weight 103 kg (11/05/24 10:06 AM) 101.6 kg (11/01/24 4:18 PM) Weight Obtained Via Patient/family state d (11/01/24 4:18 PM) Dry Weight Obtained Via Standing scale (11/05/24 10:06 AM) Social History Social History Type Response Smoking Status Former smoker, quit more than 30 days ago entered on: 01/07/19 Sex Sex Representation Female (finding) History and physical note * Event Display: History and Physical Hospital Authored Date: Note * Kelly Nunez RN: PERFORM, MODIFY Event Display: Patient Education/Instruction Authored Date: [id number] Surgery Adult Discharge Instructions [address] [address] Name: LUIS ENRIQUE VALENTINE : 1975?? Visit: 11/05/2024 08:58?? Current Date: 11/05/2024 12:18 ?? Account: [id number]?? Surgery Discharge Instructions We would like to thank you for allowing us to assist you with your healthcare needs. The following includes patient education materials and information regarding your injury/illness. Our entire staffstrives to provide an excellent experience for our patients and their families. PLEASE ENSURE YOU FOLLOW-UP PER THE INSTRUCTIONS BELOW! ?? YOUR OPINION IS IMPORTANT TO US! Please complete the survey you may receive by mail or email. Your feedback will be used to make improvements to the healthcare experiences of our patients and their families. Surveys are administered by [employer] ?? If further treatment with your primary care physician or another doctor is recommended, it is important for you to keep the appointment. Call your primary care physician or return to the Emergency Department immediately if your condition worsens, fails to improve, or new symptoms develop. If you need to find a doctor, you can call [facility] true[x] Media [facility] for a referral at [phone] or toll free at [phone]) or log in to [email or web address].. ?? [facility], in keeping with [facility] guidance, no longer requires face masks for staff, patientsor visitors in most situations. Similiar to time spent indoors at other locations, there is the chance that you were exposed to repiratory viruses during your time with us (such as flu or COVID-19). If you develop symptoms concerning for a viral respiratory infection, please seek testing (and treatment if indicated) from your medical provider or home test kit. ?? You can view and manage your care through the patient portal or by using a health care marce of your choosing. [employer] is a website that allows you to securely view your medical information including your hospital discharge summary, office visit summaries, medications and follow-up visits. You can also request appointments, renew medications, and request access to your medical information using a health care marce of your choosing, or just ask a question. You are entitled to know the individuals who participated in your treatment. This information is available within your medical record and will be provided upon your request. You can enroll at [email or web address] or register d uring your next office visit. You have been discharged from [facility], Patient Care Unit: [facility]??. If you have any questions regarding these instructions after you leave, please call us and we will be happy to assist you. [facility] Your Care Team Attending Physician Nura Benson MD?? Consulting Providers Nura Benson MD?? Discharging Providers Nura Benson MD Reason for Admission DISEASES LARYNXDS CS Primary Care Provider Not on Staff, PCP?? Advance Directive Health Care Proxy on File Yes - Health Care Proxy What to do next Instructions From Your Doctor ?? Orders?? Unit Discharge Criteria Met, ??rinse mouth with 1/2 strength H2O2 twice dailyAvoid citrus/vinegartylenol and ibuprofen for pain, ??11/05/24 11:37:00 EST? Tylenol and Motrin for any pain or discomfort. Begin rinsing the mouth with 1/2 strength hydrogen peroxide twice a day. Soft diet for 2-3 days, then return to a normal diet. Avoid vinegar and citrus foods. Avoid anything with red dye. ?? Call the doctor for any sever pain, foul smelling breath, fevers, or pus like discharge. Discharge Medications LUIS ENRIQUE VALENTINE :1975 Visit Date:11/05/2024 Medications: Please continue your medications until treatment is completed or stopped by your provider. You may resume your daily prescription medications. Discuss any questions related to medications with your provider. What How Much When Why Instructions Next Dose Unchanged Albuterol (ProAir HFA 90 mcg/ inh inhalation aerosol with adapter) 2 puff(s) Inhalation 4 times a day as needed for Wheezing/Shortness of Breath wheezing Duration: 30 Days Unchanged Amphetamine-Dextroamphetamine (amphetamine-dextroamphetamine 10 mg oral capsule, extendedrelease) TAKE 1 CAPSULE BY MOUTH EVERY DAY ?? Unchanged Diazepam (Valium 2 mg oral tablet) 0.5 tab(s) Oral Daily at Bedtime Unchanged DiphenhydrAMINE 12.5 Milligram Oral Daily at Bedtime as needed for as needed for sleep Unchanged Duloxetine (duloxetine 20 mg oral enteric coated capsule) TAKE 1 CAPSULE BY MOUTH ONCE DAY ?? Unchanged Escitalopram (Lexapro 10 mg oral tablet) 1 tab(s) Oral Daily Unchanged Famotidine (famotidine 20 mg oral tablet) 1 tab(s) Oral Daily at Bedtime Unchanged Levothyroxine (levothyroxine 0.088 mg oral tablet) 1 tab(s) Oral Daily Duration: 30 Days Unchanged Melatonin 3 Milligram Oral Daily at Bedtime Unchanged Pregabalin (Lyrica 100 mg oral capsule) 1 capsule Oral Daily at Bedtime Unchanged Pregabalin (Lyrica 25 mg oral capsule) 1 capsule Oral Daily Unchanged Sertraline (sertraline 50 mg oral tablet) TAKE 1 TABLET BY MOUTH DAILY ?? Allergies (NKA means No Known Allergies) Dilaudid Latex penicillin sulfADIAZINE Education Materials Below is the list of Educational Leaflet Providered with your Discharge Instructions. [employer] Patient Education - Surgery Medical Daystay Surgical Overnight Discharge Instructions?? [employer] Patient Education - ??NSAID Analgesic Schedule?? Valuables and Belongings I fully understand and agree that [facility] accepts no responsibility for all my personal property including clothing, toilet articles, radios, jewelry, dentures, hearing aids, rings, money, or any other property that is in my possession or is brought to me after admission. I understand certain valuables may be placed in a hospital safe for a short period of time. I understand that the hospital is not liable for loss or damage due to accident, fire, or other natural occurrence while said property is in the safe. I accept full responsibility for any personal property that I keep with me, and will not hold the hospital responsible in case of loss or disappearance. I acknowledge that i have been encouraged to send valuables and belongings home. ?? Review of Valuable and Belonging List: With patient Date for Pt to Sign Valuables/Belongings: 11/05/24 10:06:00 ?? Valuables & Belongings ?? Clothes Electronic devices Jewelry Monetary Items Personal devices Miscellaneous Medications (Valuables) Valuables at Bedside Jacket, Pants, Shirt, Shoes, Undergarments ? Valuables Sent Home ? Valuables Sent to Security ? Valuables Sent to Locker ? Other Discharge Information ? Pulmonary Rehab Status?? Pulmonary Rehab Discharge Status?? Respiratory Rate:??10 br/min??Low ? Common Emergency Awareness Tips IS IT A STROKE? Act FAST and Check for these signs: FACE Does the face look uneven? ARM Does one arm drift down? SPEECH Does their speech sound strange? TIME Call at any sign of stroke ?? Heart Attack Signs Chest discomfort: Most heart attacks involve discomfort in the center of the chest and lasts more than a few minutes, or goes away and comes back. It can feel like uncomfortable pressure, squeezing, fullness or pain. Discomfort in upper body: Symptoms can include pain or discomfort in one or both arms, back, neck, jaw or stomach. Shortness of breath: With or without discomfort. Other signs: Breaking out in a cold sweat, nausea, or lightheaded. Remember, MINUTES DO MATTER. If you experience any of these heart attack warning signs, call to get immediate medical attention! ?? Smoking can increase your chances of developing chronic health problems and can cause harmful effects to other family members in your house. If you smoke, you are strongly encouraged to quit. Please call [employer] at [phone] or [phone]) or log in to [email or web address] for referrals to smoking cessation programs. ?? The National Suicide Prevention Hotline is available 03/04 if you or someone you know needs to find a reason to keep living. By calling 0-070-078-[employer] (7254) you'll be connected to a skilled, trained counselor at a crisis center in your area. SURGERY DISCHARGE INSTRUCTIONS SIGNATURE MILENA LUIS ENRIQUE VALENTINE Location:[facility] Registration Date and Time:11/05/2024 08:58 EST Primary Care Physician: Not on Staff, PCP Attending Physician: Kelley HAIRSTON, Nura Davidson, I LUIS ENRIQUE VALENTINE, have received the above patient education materials/instructions and have verbalized understanding. If ambulance or transport services are being used I further acknowledge being givena choice of service. ?? If you need to contact me, please call me at this number: . Patient/Spa Supervisor Name: Patient/Spa Supervisor Signature: Relationship to Patient: Witness Name/Signature: Date: * Kelly Nunez RN: PERFORM Event Display: Patient Education Leaflets Authored Date: [id number] Surgery Medical Daystay Surgical Overnight Discharge Instructions ?? 295 Medical Daystay/Surgical Overnight Discharge Instructions ? Since your coordination and judgment may be altered by medication and/or anesthesia, a responsible adult must drive you home from the hospital. ? If you have received medication for pain or sedation while under our care, you should not drive, operate machinery, drink alcohol, or sign any legal documents for 24 hours.?? You should have someone with you at home tonight. ? Remain at home the day of discharge.?? You may be up and about unless otherwise instructed by your physician. ? You may resume your daily prescription medication schedule.?? Any depressant medication should be avoided for 24 hours unless otherwise instructed by your surgeon or anesthesiologist. ? Call your physician for a follow-up appointment.? If you experience unusual or severe pain not relied by your pain medication, excessive bleedingor drainage, persistent nausea and vomiting, excessive swelling or redness, foul odor from incisionsite or fever over 100.6F, you need to call your physician. ? A follow-up phone call by a nurse will be made the day after your procedure.?? If you have stayed with us over night, you will not be receiving a follow-up phone call. ? Nausea and vomiting are a common side effect of prescription pain medication.?? We recommend that pills are not taken on an empty stomach.?? While taking any prescription pain medication you should not drive or drink alcohol. ? * Kelly Nunez RN: PERFORM Event Display: Patient Education Leaflets Authored Date: [id number] NSAID Analgesic Schedule ?? 604 NSAID???s Analgesic Schedule ?? Pain is the primary source of illness following your procedure and can include dehydration, difficulty and painful swallowing, and weight loss. These symptoms can lead to increased post-operative visits and hospital readmission. The best way to control pain is to take pain medications regularly. Your doctor has recommended both Ibuprofen and Acetaminophen (generic/store brands are okay, too). These can be picked up over the counter at your pharmacy of choice. Follow the instructions on the bottle to determine the proper dosage to give. The simplest way to take these medications it to rotate the two at 3-hour intervals. Here is a sample diagram. The time you take your medications may vary from this example. Do not give Ibuprofen more than every 6 hours or Acetaminophen every 4 hours. Do not give Acetaminophen if your doctor has given you a prescription that contains Acetaminophen. ? Patient Care team information Care Team Personnel Name: Not on Staff, PCP Position: S Physician (General Medicine) Member Role: PCP Care Team Related Persons Name: CONNIE VALENTINE Name: FADUMO SWARTZ Insurance Providers Guarantor name: LUIS ENRIQUE VALENTINE true[x] Media Plan Information #: 2 Payer: [employer] Member Number: [id number] Policy Number: NA Group Number: NA Health Plan Information #: 1 Payer: [employer] Member Number: [id number] Policy Number: NA Group Number: [id number]
--- OUTSIDE RECORDS SUMMARY | 2024-12-04 18:09 | XMS_ITS | Encounter Summary ---
Author Organization [facility] Address [address] [place] [phone] Phone Care Team Providers Care Apigee Developer Name Role Phone Yadira Marcano MD Primary Care Provider [phone] Encounter Details Date Type Department Care Team (Late st Contact Info) Description 01/01/2021 Procedure [facility] [address] [place] [address] Social History Tobacco Use Types Packs/Day Years Used Date Smoking Tobacco: Never Assessed Sex and Gender Information Value Date Recorded Sex Assigned at Not on file Gender Identity Not on file Sexual Orientation Not on file documented as of this encounter Plan of Treatment Not on file documented as of this encounter Visit Diagnoses Not on filedocumented in this encounter Care Teams Apigee Developer Relationship Specialty Start Date End Date Yadira Marcano MD [address] [place] [id number] PCP - General Internal Medicine 12/23/20 documented as of this encounter Additional Source Comments The information contained in this document represents components of the legal health record. It is not the complete legal health record.[facility]
--- OUTSIDE RECORDS SUMMARY | 2024-12-04 18:09 | XMS_ITS | Clinical Summary ---
Author Organization [facility] Address [address] [place] [address] Phone Care Team Providers Care Dog Or Horse Racing Official Name Role Phone Yadira Marcano MD Primary Care Provider [phone] Allergies Active Allergy Reactions Criticality Noted Date Comments Cephalexin Monohydrate Hives 11/07/2012 Hydromorphone 09/12/2024 Hydromorphone (Pf) Nausea And Vomiting 11/07/19 13 Latex 09/12/2024 Metronidazole Nausea And Vomiting 02/23/2015 Nsaids (Non-Steroidal Anti-Inflammatory Drug) GI intolerance 09/15/2024 Penicillins Hives 11/07/2012 Sulfa (Sulfonamide Antibiotics) Hives 10/13 Medications Synthroid 100 mcg tablet Take 1 tablet (100 mcg total) by mouth 1 (one) time each day. SYNTHROID BRAND ONLY, NO ALTERNATES - Active meloxicam (MOBIC) 15 mg tablet Take 1 tablet (15 mg total) by mouth 1 (one) time each day. 4 Active pregabalin (LYRICA) 150 mg capsule Take 1 capsule (150 mg total) by mouth at bedtime. Take 150 mg daily 0 Active sertraline (ZOLOFT) 50 mg tablet Take 1 tablet (50 mg total) by mouth 1 (one) time each day. (Castro Gallardo) 4 Active mijos-4p-tmy-ep a-fish oil-D3 1,250 mg-1,375 mg-25 mcg capsule Take by mouth. [place] 3 340 MG CAPSULE DELAYED RELEASE Active triamcinolone (KENALOG) 0.025 % cream Apply topically 2 (two) times a day. to skin 9 Active albuterol sulfate (VENTOLIN HFA INHL) Take 1 vial by nebulization every 4 (four) hours if needed. for Wheezing for up to 180 days. - albuterol (PROVENTIL) (2.5 MG/3ML) 0.083% nebulizer solution Active albuterol HFA (ProAir HFA) 90 mcg/actuation inhaler Inhale 2 puffs by mouth every 4 (four) hours if needed for wheezing or shortness of breath. COUGH 0 Active cyclobenzaprine (FLEXERIL) 10 mg tablet Take 1 tablet (10 mg total) by mouth at bedtime as needed for muscle spasms. 4 Active DULoxetine (CYMBALTA) [address] capsule Take 1 capsule (20 mg total) by mouth 1 (one) time each day. (Castro Gallardo) Active amphetamine-dex troamphetamine XR (ADDERALL XR) 10 mg 24 hr capsule Take 1 capsule (10 mg total) by mouth 1 (one) time each day. (Castro Gallardo) Max Daily Amount: 10 mg 5 Active Active Problems Problem Noted Date Diagnosed Date Great toe pain, right 09/15/2024 Glaucoma suspect of both eyes 09/15/2024 Chronic hip pain, bilateral 09/15/2024 Brain lesion 09/15/2024 ADD (attention deficit disorder) 09/12/2024 Hypothyroidism 09/12/2024 Asymptomatic varicose veins of both lower extrem ities 11/08/2023 Chronic bilateral low back pain with bilateral s ciatica 11/08/2023 Hyperlipidemia 04/14/2022 Mild intermittent asthma without complication Fibromyalgia 02/02/2020 Psoriasis 02/13/2019 Irritable bowel syndrome 01/30/2019 Multiple thyroid nodules 10/16/2018 Overview (09/12/2024): Ultrasound 08/07/2017 Depression 08/17/2018 Chorioretinal scar, right eye 03/07/2017 Ocular hypertension 03/07/2017 Cervical radiculopathy 08/22/2016 Encounters Date Type Department Care Team Description 10/01/2024 Telephone Adult Medicine [address] [phone] Batsheva Porras RN 09/13/2024 8:36 AM EST - 09/13/2024 11:59 PM EST Hospital Encounter CT Scan [address] [phone] Acute intractable headache, unspecified headache type Discharge Disposition: Home or Self Care 09/12/2024 1:15 PM EST Office Visit Adult [address] [phone] Yadira Marcano MD Acute intractable headache, unspecified headache type (Primary Dx); Concussion without loss of consciousness, initial encounter from Last 3 Months Immunizations Name Administration Dates Next Due DTaP (Infanrix) 6wks to less than 7yo ,02/06/1979,02/23/1976,1975,1975 Hepatitis B (Wmtdwbw-F-Jgqho , Recombivax HB-Adult) 19yo and older 11/28/2011,05/27/2011,04/22/2011 IPV Inactivated polio (Ipol) 6wks and older 05/21/1982,02/06/1979,02/23/1976,1975,1975 Influenza Whole 06/15/2012 Influenza trivalent, with preservative (Fluzone; Afluria) 6mo and older 06/13/2016,06/11/2015,06/24/2014,2010,09/11/2010 Influenza, Unspecified 07/10/2023,06/11/2018 MMR, measles mumps and rubel la Live (Priorix; M-M-R II) 12mo and older 04/22/2011,09/18/1992,05/08/1978 Tdap Tetanus diptheria acell ular pertussis (Boostrix; Adacel) 7yo and older 06/13/2022,06/11/2012 Tetanus Toxoid, Unspecified 07/22/2010, 4,09/18/1992 Surgical History Surgery Date Site/Laterality Comments TONSILLECTOMY COLONOSCOPY 04/10/15 Hemorrhoids, otherwise normal colonoscopy SHOULDER SURGERY 05/2017 Left Medical History Medical History Date Comments Hypothyroidism DX:Hypothyroidis m ADD (attention deficit disorder) DX:ADD (attention deficit disorder) Psoriasis DX:Psoriasis Glaucoma suspect of both eyes DX :Glaucoma suspect of both eyes Depression DX:Depression Hyperlipidemia 04/14/2022 DX:Hyperlipidemi a Asymptomatic varicose veins of both lower extremities 11/08/2023 Fibromyalgia 02/02/2020 Multiple thyroid nodules 10/16/2018 Ultraso und 08/07/2017 Ocular hypertension 03/07/2017 Family History Medical History Relation Name Comments Breast cancer Aunt paternal, bila teral Pancreatic cancer Father Colon cancer Maternal Grandfather Stroke Maternal Grandmother lung ca ncer Arthritis Mother rheumatoid arth ritis Breast cancer Other many great aun ts paternal and maternal Heart attack Paternal Grandfather Diabetes Paternal Grandmother [place] Ovarian cancer Neg Hx Uterine cancer Neg Hx Relation Name Status Comments Aunt Alive Father Maternal Grandfather Maternal Grandmother Mother Alive Other Paternal Grandfather Paternal Grandmother Social History Tobacco Use Types Packs/Day Years Used Date Smoking Tobacco: Former Cigarettes 0.5 29.2 0 1987 - 08/11/2016 Smokeless Tobacco: Never Tobacco Cessation:Counseling Given: Not Answered Alcohol Use Standard Drinks/Week Comments Yes 0 (1 standard drink = 0.6 oz pur e alcohol) Comments Unknown Sex and Gender Information Value Date Recorded Sex Assigned at Not on file Legal Sex Female 6:51 AM EST Gender Identity Not on file Sexual Orientation Not on file Obstetrics History Last Filed Vital Signs Vital Sign Reading Time Taken Comments Blood Pressure 100/66 09/12/2024 1:32 PM EST Pulse 82 09/12/2024 1:32 PM EST Temperature 36.4 ??C (97.6 ??F) 09/12/2024 1:32 PM ES T Respiratory Rate 16 09/12/2024 1:32 PM EST Oxygen Saturation 99% 09/12/2024 1:32 PM EST Inhaled Oxygen Concentration - - Weight 102 kg (224 lb 1.6 oz) 09/12/2024 1:32 PM EST Height 172.7 cm (5' 8 ) 09/12/2024 1:32 PM EST Body Mass Index 34.07 09/12/2024 1:32 PM EST Plan of Treatment Upcoming Encounters Date Type Department Care Team (Late st Contact Info) Description 05/21/2025 3:00 PM EDT Appointment Radiology Department [address] [phone] Health Maintenance Due Date Last Done Comments Pneumococcal Vaccine: Pediatrics (0 to 5 Years) and At-Risk Patients (6 to 64 Years) (1 of 2 - PCV) 1994 Social Influencers of Health Screening 08/20/2022 COVID-19 Vaccine ( - season) 2024 06/04/2021, 05/04/2021 Influenza Vaccine (#1) 2024 , 06/11/2018, 06/13/2016, Additional history exists Depression Screening 11/08/2024 11/08/2023 Breast Cancer Screening 06/12/2025 06/12/20 23, 04/23/2022, 11/26/2020, Additional history exists Cervical Cancer Screening: HPV 11/16/2025 11/16/2020 Colorectal Cancer Screening: Colonoscopy 06/13/2027 06/13/2022 Cholesterol Screening (Lipid Panel) 06/05/2029 06/05/2024, 06/05/2024 DTaP,Tdap,and Td Vaccines (8 - Td or Tdap) 06/13/2032 06/13/2022, 06/11/2012, 05/21/1982, Additional history exists IPV Vaccines Completed 05/21/1982, 01/10, 02/23/1976, Additional history exists MMR Vaccines Completed 04/22/2011, 04/1993, 05/08/1978 Hepatitis B Vaccines Completed 11/28/2011, 05/27/2011, 04/22/2011 HIV Screening Completed 06/22/2015 Hepatitis C Screening Completed 06/22/2015 HIB Vaccines Aged Out No longer eligi ble based on patient's age to complete this topic HPV Vaccines Aged Out No longer eligi ble based on patient's age to complete this topic Hepatitis A Vaccines Aged Out No long er eligible based on patient's age to complete this topic Meningococcal ACWY Vaccine Aged Out N o longer eligible based on patient's age to complete this topic Meningococcal B Vacine Aged Out No lo nger eligible based on patient's age to complete this topic RSV Immunization Patients Under 20 months Aged Out No longer eligible based on patient's age to complete this topic Varicella Vaccines Aged Out No longer eligible based on patient's age to complete this topic Procedures Procedure Name Priority Date/Time Associated Diagnosis Comments CT HEAD WO CONTRAST STAT 09/13/2024 8 :44 AM EST Acute intractable headache, unspecified headache type LIPID PANEL Routine 06/05/2024 DEPRESSION SCREENING Routine 11/08/2023 SCREENING MAMMOGRAPHY BI 2-VIEW BREAST INC CAD Routine 06/12/2023 4:38 PM EDT Encounter for screening mammogram for malignant neoplasm of breast COLONOSCOPY Routine 06/13/2022 HPV Routine 11/16/2020 HEPATITIS C SCREENING Routine 06/22/2015 HIV SCREENING Routine 06/22/2015 from Last 3 Months or Most Recently Relevant to Health Maintenance Results * CT Head wo Contrast (09/13/2024 8:44 AM EST) Anatomical Region Laterality Modality Head and Neck Computed Tomogra phy 09/13/2024 9:20 AM EST Addenda Addendum by Marielle Singh MD on 09/13/2024 6:34 PM EST Prior MRI examinations of the head, latest from 10/06/2021 were reviewed. 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 It is unchanged in size significantly since previous examination and therefore is stable. No additional MRI examinations of the head is recommended. Ordering provider was informed. -------- ADDENDUM -------- Dictated By: Marielle Singh Dictated Date: 09/13/2024 18:32 ET Assigned Physician: Marielle Singh Reviewed and Electronically Signed By: Marielle Singh Signed Date: 09/13/2024 18:34 ET Workstation ID: [id number] Transcribed By: Self Edit Transcribed Date: 09/13/2024 18:32 ET Narrative 09/13/2024 9:[address] without intravenous contrast. History head trauma. Right-sided headaches. No prior studies are available for comparison. Examination was performed on multidetector scanner without administration of intravenous contrast. There is no evidence of midline shift, extra or intra-axial blood fluid collections. There is a 1 x 1.1 x 1.5 cm hypodense area adjacent to the trigone of the right lateral ventricle with 2 hyperdense rounded structures at the borders. The nature is uncertain. Additional evaluation with contrast-enhanced MRI of the head is recommended. Fourth ventricle and basal cisterns are midline and patent. Bony structures are unremarkable. Visualized paranasal sinuses are unremarkable. CONCLUSIONS: Hypodense structure adjacent to the trigone of the right lateral ventricle as detailed. Possibility of a neoplastic process versus vascular malformation should be considered. Contrast-enhanced MRI of the head is recommended for further assessment. -------- FINAL REPORT -------- Dictated By: Marielle Singh Dictated Date: 09/13/2024 09:20 ET Assigned Physician: Marielle Singh Reviewed and Electronically Signed By: Marielle Singh Signed Date: 09/13/2024 09:28 ET Workstation ID: [id number] Transcribed By: Self Edit Transcribed Date: 09/13/2024 09:20 ET Procedure Note Marielle Singh MD - 09/13/[address] without intravenous contrast. History head trauma. Right-sided headaches. No prior studies are available for comparison. Examination was performed on multidetector scanner without administrationof intravenous contrast. There is no evidence of midline shift, extra or intra-axial blood fluidcollections. There is a 1 x 1.1 x 1.5 cm hypodense area adjacent to thetrigone of the right lateral ventricle with 2 hyperdense roundedstructures at the borders. The nature is uncertain. Additional evaluationwith contrast-enhanced MRI of the head is recommended. Fourth ventricle and basal cisterns are midline and patent. Bony structures are unremarkable. Visualized paranasal sinuses areunremarkable. CONCLUSIONS: Hypodense structure adjacent to the trigone of the rightlateral ventricle as detailed. Possibility of a neoplastic process versusvascular malformation should be considered. Contrast-enhanced MRI of thehead is recommended for further assessment. -------- FINAL REPORT -------- Dictated By: Mairelle Singh Dictated Date: 09/13/2024 09:20 ET Assigned Physician: Marielle Singh Reviewed and Electronically Signed By: Marielle Singh Signed Date: 09/13/2024 09:28 ET Workstation ID: [id number] Transcribed By: Self Edit Transcribed Date: 09/13/2024 09:20 ET Yadira Marcano MD IMG CT PROCEDURES Edited Result - Final * (ABNORMAL) Lipid panel (06/05/2024) LDL/HDL Ratio 4 0 - 4 Triglycerides 146 0 - 150 mg/dL Cholesterol 275(A) 0 - 200 mg/dL HDL 75 >=40 mg/dL LDL Cholesterol 171(A) 0 - 100 mg/dL Blood Venous blood specimen / Unknown Historical Provider LAB BLOOD ORDERABLES Dang l Result * Depression Screening (11/08/2023) Depression Screening abstracted Historical Provider HEALTH MAINTENANCE Final Result * SCREENING MAMMOGRAPHY BI 2-VIEW BREAST INC CAD (06/12/2023 4:38 PM EDT) Anatomical Region Laterality Modality Radiographic Carola ging 04/23/2022 11:3 0 AM EDT Narrative 06/13/2023 4:37 PM EDT This is a summary report. The complete report is available in the patient's medical record. If you cannot access the medical record, please contact the sending organization for a detailed fax or copy. Study: SCREENING MAMMOGRAPHY BI 2-VIEW BREAST INC CAD Technique: Bilateral full-field digital screening mammography is obtained and read in conjunction with computer aided detection. ??Tomosynthesis as well as 2D C-View imaging were obtained. Comparison: April 23, 2022 and November 26, 2020 Breast composition: There are scattered areas of fibroglandular density. Bilateral breasts: No significant masses, suspicious calcifications or other abnormalities are seen in either breast. IMPRESSION: Impression: Bilateral breasts: Negative, no specific mammographic evidence of malignancy. ??Normal interval follow-up is recommended in 12 months. BI-RADS: Category 1: Negative Procedure Note Geri Linares L - 10/16/2023 This is a summary report. The complete report is available in thepatient's medical record. If you cannot access the medical record, pleasecontact the sending organization for a detailed fax or copy. Study: SCREENING MAMMOGRAPHY BI 2-VIEW BREAST INC CAD Technique: Bilateral full-field digital screening mammography is obtainedand read in conjunction with computer aided detection. Tomosynthesis aswell as 2D C-View imaging were obtained. Comparison: April 23, 2022 and November 26, 2020 Breast composition: There are scattered areas of fibroglandular density. Bilateral breasts: No significant masses, suspicious calcifications orother abnormalities are seen in either breast. IMPRESSION: Impression: Bilateral breasts: Negative, no specific mammographic evidence ofmalignancy. Normal interval follow-up is recommended in 12 months. BI-RADS: Category 1: Negative Yadira Marcano MD IMG XR PROCEDURES Final Result * Colonoscopy (06/13/2022) [facility] Colonoscopy no interpretation , abstracted Anatomical Region Laterality Modality Other Result [facility] Provider HEALTH MAINTENANCE Final Result * Cervical Cancer Screening: HPV (11/16/2020) [facility] Cervical Cancer Screening: HPV negative, abstracted Result [facility] Provider HEALTH MAINTENANCE Final Result * HIV Screening (06/22/2015) [facility] HIV Screening abstracted Result [facility] Provider HEALTH MAINTENANCE Final Result * Hepatitis C Screening (06/22/2015) [facility] Hepatitis C Screening abstracted us Historical Provider HEALTH MAINTENANCE Final Result from Last 3 Months or Most Recently Relevant to Health Maintenance Insurance [facility] [address] Care Teams Dog Or Horse Racing Official Relationship Specialty Start Date End Date Yadira Marcano MD [address] [place] [address] PCP - General Internal Medicine 08/17/20
--- OUTSIDE RECORDS SUMMARY | 2024-12-04 18:09 | XMS_ITS | Encounter Summary ---
Author Organization [facility] Address [address] [place] [id number] Phone Care Team Providers Care Supervisor [employer] Name Role Phone Yadira Marcano MD Primary Care Provider [phone] Encounter Details Date Type Department Care Team (Late st Contact Info) Description 01/01/2021 Ancillary Orders [facility] Specialties at [address] [address] Nikhil Castillo, DO [address] [place] [id number] [email or web address] Social History Tobacco Use Types Packs/Day Years Used Date Smoking Tobacco: Never Assessed Sex and Gender Information Value Date Recorded Sex Assigned at Not on file Gender Identity Not on file Sexual Orientation Not on file documented as of this encounter Plan of Treatment Not on file documented as of this encounter Visit Diagnoses Not on filedocumented in this encounter Care Teams Supervisor [employer] Relationship Specialty Start Date End Date Yadira Marcano MD [address] [place] [id number] PCP - General Internal Medicine 12/23/20 documented as of this encounter Additional Source Comments The information contained in this document represents components of the legal health record. It is not the complete legal health record.[facility]
== END 2024-12-04 15:59 | disposition home or self-care (01) ==
LOC: HO.RHE 15:09
PROVIDERS: PCP Internal Medicine; Visit Provider Student in an Organized Health Care Education/Training Program
DX: M79.7 Fibromyalgia (principal)
CPT/HCPCS: 99214; G2211

== ENCOUNTER → 2024-12-04 15:08 | Outpatient (BNVA) | payer OTHER, SELFPAY | PROVIDERS: PCP Internal Medicine; Visit Provider Student in an Organized Health Care Education/Training Program | DX: M79.7 Fibromyalgia (principal) | CPT/HCPCS: 99212 ==

== ENCOUNTER 2025-05-05 08:40 | Outpatient (REF) | payer OTHER, SELFPAY ==
[2025-05-05 11:03] LABS: Thyroid Stimulating Hormone 3.91 uIU/mL (0.32-4.0)
[2025-05-05 12:49] LABS: Folate 17.0 ng/mL (> or = 4.0); Vitamin B12 489 pg/mL (200-900)
[2025-05-06 14:48] LABS: Lyme Abs Screen <0.90 index
[2025-05-08 17:49] LABS: HLA B27 Negative (Negative)
[2025-05-10 18:38] LABS: Acetylcholine Recept. Blocking <15 (<15)
== END 2025-05-05 08:41 | disposition home or self-care (01) ==
LOC: HO.LAB 08:40
PROVIDERS: PCP Internal Medicine; Visit Provider Psychiatry & Neurology Neurology
DX: G43.009 Migraine without aura, not intractable, without status migrainosus (principal); F45.0 Somatization disorder; G72.9 Myopathy, unspecified; M62.81 Muscle weakness (generalized)
CPT/HCPCS: 36415; 82550; 82607; 82746; 84443; 85652; 86041; 86042; 86043; 86431; 86617; 86618; 86812; 99202

== ENCOUNTER 2025-05-05 08:40 | Outpatient (AMB) | payer OTHER, SELFPAY ==
--- NOTE | 2025-05-05 08:45 | A.OFFVIS_ITS ---
Intake Visit Reasons: Muscle weakness Allergies cephalexin (Keflex) Allergy (Intermediate, Verified 12/04/24 15:19) rash metronidazole (Flagyl) Allergy (Intermediate, Verified 12/04/24 15:19) vomiting Sulfa (Sulfonamide Antibiotics) (SULFA (SULFONAMIDE ANTIBIOTICS)) Allergy (Intermediate, Verified 12/04/24 15:19) HIVES adhesive tape (ADHESIVE TAPE) Allergy (Unknown, Verified 12/04/24 15:19) RASH hydromorphone (From DILAUDID) Allergy (Unknown, Verified 12/04/24 15:19) SEVERE VOMITING latex (LATEX) Allergy (Unknown, Verified 12/04/24 15:19) RASH Penicillins (PENICILLINS) Allergy (Unknown, Verified 12/04/24 15:19) HIVES HPI Comments Details: The patient is a 49-year-old female with diagnoses of migraine and fibromyalgia is presenting with muscle twitching and weakness. She reports that approximately two weeks ago, she experienced a severe episode at work causing difficulty walking and muscle twitching, along with numbness on the left side of her face. The symptoms date back nearly ten years and include significant muscle weakness leading to impaired function in her arms and legs by the end of the day. Her symptoms are accompanied by brain fog and cognitive issues, impacting her ability to perform daily tasks, including writing, walking, and basic grooming. 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 Despite treatments, such as chiropractic interventions and medications like meloxicam, her condition has not improved. Additionally, the patient has a notable family history of multiple sclerosis and Parkinson's disease. [facility] Medical History (Updated 05/05/25 @ 08:58 by Glen Randall MD) Migraine without aura Psoriasis Fibromyalgia Family History Mother Rheumatoid arthritis Family/Other Multiple sclerosis Other Family history of thyroid disease Social History Alcohol intake: never Patient Tobacco Use Status: Former Tobacco user Years Smoked: qUIT 6 YEARS AGO Review of Systems Const Details: - Neurological: Reports muscle twitching, muscle weakness, facial numbness on the left side, brain fog, cognitive issues, and speech difficulties. Denies having symptoms of myasthenia gravis or Parkinson's. - Musculoskeletal: Reports severe sacroiliac joint dysfunction and muscular pain in the neck and lumbar region. - Psychiatric: Reports depression treated with Paxil. Physical Exam Neuro Other: Mental Status: Alert and oriented to person, place, and time. Normal attention. Normal spontaneous speech, fluency, and comprehension. No obvious issues with mood and memory. Affect is appropriate. Cranial Nerves: CN II: Visual norton full to confrontation, visual acuity intact. CN III, IV, : Pupils equal, round, reactive to light and accommodation. Extraocular movements are normal. CN V: Facial sensation is normal. CN VII: Facial movements symmetrical. CN VIII: Hearing intact to bedside conversation is normal. CN IX, X: Palate elevates symmetrically. CN XI: Shoulder shrug and head turn symmetrical. CN XII: Tongue midline without atrophy or fasciculations. Motor: Bulk and tone normal in all extremities. No significant muscle weakness in arms and legs. No drift. Reflexes: Deep tendon reflexes 2+ and symmetric. Plantar response down-going bilaterally. Coordination: Iblqmn-[id number]-awdi and eibe-qz-[id number] testing normal. No dysmetria. Gait and Station: No obvious gait abnormality. No ataxia or instability. Extrapyramidal: Full facial expressions and blinking. No rigidity. Movements are appropriate with no tremor or abnormality. Speech: Normal; no dysarthria or tremor. 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 We agreed to conduct an EMG/nerve conduction study to assess nerve and muscle function. The patient will provide previous imaging on CD for review. Our aim is to explore other underlying factors thoroughly, including somatization disorder, given the chronicity of her symptoms. Neurological conditions such as multiple sclerosis and Parkinson's have been ruled out during prior evaluations, and our goal is to conclusively eliminate these through further testing while addressing potential psychological contributions to her manifestations. (3) Myopathy: Code(s): G72.9 - Myopathy, unspecified Category: Medical Plan Impression and recommendations: 49 yo woman with set of symptoms that are difficult to explain based upon a neurological syndrome. They have affected her for years. I would review her brain imaging as MS is one of her concerns. As far as other concerns are concerned, her symptoms or exam do not suggest Parkinson or Myathenia Gravis either. She is advised to read about somatization disorder, which is also a leading possibility. Orders: Orders Rheumatoid Factor Today F45.0 - Somatization disorder, G43.009 - Migraine with out aura, not intractable, without status migrainosus NE nerve conduction velocity Today G72.9 - Myopathy, unspecified Acetylcholine Road Production General Manager Modulating Today G72.9 - Myopathy, unspecified Acetylcholine Recept. Blocking Today G72.9 - Myopathy, unspecified Acetylcholine Receptor Binding Today G72.9 - Myopathy, unspecified Creatine Kinase Total Today F45.0 - Somatization disorder, G43.009 - Migraine without aura, not intractable, without status migrainosus Erythrocyte Sedimentation Rate Today F45.0 - Somatization disorder, G43.009 - Migraine without aura, not intractable, without status migrainosus HLA B27 Today F45.0 - Somatization disorder, G43.009 - Migraine without aura, not intractable, without status migrainosus Vitamin B12 and Folate Today F45.0 - Somatization disorder, G43.009 - Migraine without aura, not intractable, without status migrainosus Thyroid Stimulating Hormone Today F45.0 - Somatization disorder, G43.009 - Migraine without aura, not intractable, without status migrainosus, G72.9 - Myopathy, unspecified Lyme IgG/IgM w/reflex to WB Today F45.0 - Somatization disorder, G43.009 - Migraine without aura, not intractable, without status migrainosus NE electromyogram (EMG) Today G72.9 - Myopathy, unspecified Coding Level of Care Code New Pt Level 5 (19736) Diagnoses Migraine without aura and without status migrainosus, not intractable G43.009 Status migrainosus presence: without status migrainosus Intractability: not intractable Somatization disorder F45.0 Myopathy G72.9
--- OUTSIDE RECORDS SUMMARY | 2025-05-05 09:09 | XMS_ITS | Clinical Summary ---
Author Organization [facility] Address [address] [place] [address] Phone Care Team Providers Care Lamp Decorator Name Role Phone Yadira Marcano MD Primary Care Provider Social History Tobacco Use Types Packs/Day Years [...] with a working camera? Not on file Comments Unknown Sex and Gender Information Value Date Recorded Sex Assigned at Not on file Legal Sex Female 8:43 AM EDT Gender Identity Not on file Sexual Orientation Not on file Plan of Treatment Not on file Medical Devices Not on file Insurance [facility] AMEE[employer] ALLANCE ACO [facility] Adisn ALLANCE ACO [facility] ALLANCE ACO Care Teams Lamp Decorator Relationship Specialty Start Date End Date Yadira Marcano MD [address] [place] [address] PCP - General Internal Medicine 12/23/20 Additional Source Comments The information contained in this document represents components of the legal health record. It is not the complete legal health record.[facility]
--- OUTSIDE RECORDS SUMMARY | 2025-05-05 09:09 | XMS_ITS | Clinical Summary ---
Author Organization [facility] Address [address] [place] [address] Phone Care Team Providers Care Twitchell Operator Name Role Phone Yadira Marcano MD Primary Care Provider [phone] Allergies Active Allergy Reactions Criticality Noted Date Comments Cephalexin Monohydrate Hives 11/07/2012 Hydromorphone 09/12/2024 Hydromorphone (Pf) Nausea And Vomiting 11/07/19 13 Latex 09/12/2024 Metronidazole Nausea And Vomiting 02/23/2015 Penicillins Hives 11/07/2012 Sulfa (Sulfonamide Antibiotics) Hives 10/13 Medications meloxicam (MOBIC) 15 mg tablet Take 1 tablet (15 mg total) by mouth 1 (one) time each day. 08/13/20 24 Active pregabalin (LYRICA) 150 mg capsule Take 1 capsule (150 mg total) by mouth at bedtime. Take 150 mg daily 08/17/20 20 Active sertraline (ZOLOFT) 50 mg tablet Take 1 tablet (50 mg total) by mouth 1 (one) time each day. (Castro Gallardo) 06/11/20 24 Active [id number] pa-fish oil-D3 1,250 mg-1,375 mg-25 mcg capsule Take by mouth. Conrad 3 340 MG CAPSULE DELAYED RELEASE Active triamcinolone (KENALOG) 0.025 % cream Apply topically 2 (two) times a day. to skin 02/14/20 Active albuterol sulfate (VENTOLIN HFA INHL) Take 1 vial by nebulization every 4 (four) hours if needed. for Wheezing for up to 180 days. - albuterol (PROVENTIL) (2.5 MG/3ML) 0.083% nebulizer solution Active Tirosint 50 mcg capsuleIndicat ions:Hypothyro idism, unspecified type Take 1 capsule (50 mcg total) by mouth 1 (one) time each day. Brand name only 90 capsule 3 04/10/20 Active lisdexamfetami ne (VYVANSE) 30 mg capsule Take 1 capsule (30 mg total) by mouth 1 (one) time each day in the morning. Max Daily Amount: 30 mg Active albuterol HFA (ProAir HFA) 90 mcg/actuation inhaler Inhale 2 puffs by mouth every 4 (four) hours if needed for wheezing or shortness of breath. COUGH 6.7 g 1 04/28/20 25 2024 Active cyclobenzaprin e (FLEXERIL) 10 mg tablet TAKE 1 TABLET BY MOUTH AT BEDTIME NEEDED FOR MUSCLE SPASMS. 30 tablet 2 05/02/20 25 Active albuterol HFA (ProAir HFA) 90 mcg/actuation inhaler Inhale 2 puffs by mouth every 4 (four) hours if needed for wheezing or shortness of breath. COUGH 10/23/19 20 2024 Discontinued(R eorder) cyclobenzaprin e (FLEXERIL) 10 mg tablet Take 1 tablet (10 mg total) by mouth at bedtime as needed for muscle spasms. 06/05/20 24 2024 Discontinued amphetamine-de xtroamphetamin e XR (ADDERALL XR) 10 mg 24 hr capsule Take 1 capsule (10 mg total) by mouth 1 (one) time each day. (Castro Gallardo) 09/25/19 25 2024 Discontinued Tirosint 50 mcg capsuleIndicat ions:Hypothyro idism, unspecified type Take 1 capsule (50 mcg total) by mouth 1 (one) time each day. Brand name only 90 capsule 3 04/04/20 25 2024 Discontinued(R eorder) Active Problems Problem Noted Date Diagnosed Date [...] Encounters Date Type Department Care Team Description 04/21/2025 1:15 PM EDT Office Visit Adult Medicine [address] [phone] Yadira Marcano MD Muscle weakness (Primary Dx); Other hyperlipidemia; Acquired hypothyroidism; Fibromyalgia 04/21/2025 Telephone Adult Medicine [address] [phone] Yadira Marcano MD Hospital Follow-up 04/10/2025 3:45 PM EDT Office Visit Endocrinology [address] [phone] Natividad Silver MD Hypothyroidism, unspecified type 04/02/2025 Telephone Endocrinology [address] [phone] Natividad Silver MD Lab Results 02/27/2025 3:30 PM EDT Consult Orthopedic Surgery - [address] [place] [address] Kelly Gan PA Left wrist pain from Last 3 Months Immunizations Name Administration Dates Next Due DTaP (Infanrix) 6wks to less than 7yo ,02/06/1979,02/23/1976,1975,1975 Hepatitis B (Kzsslgc-Z-Bapeq , Recombivax HB-Adult) 19yo and older 11/28/2011,05/27/2011,04/22/2011 [...] Medical History Medical History Date Comments Hypothyroidism ADD (attention deficit disorder) Psoriasis Glaucoma suspect of both eyes Depression Hyperlipidemia 04/14/2022 Asymptomatic varicose veins of both lower extremities 11/08/2023 Fibromyalgia 02/02/2020 Multiple thyroid nodules 10/16/2018 Ultraso und 08/07/2017 Ocular hypertension 03/07/2017 Family History Medical History Relation Name Comments Breast cancer Aunt paternal, bila teral Saundra-Danlos syndrome Daughter mast cell activation syndrome Pancreatic cancer Father Colon cancer Maternal Grandfather Stroke Maternal Grandmother lung ca ncer Arthritis Mother rheumatoid arth ritis Breast cancer Other many great aun ts paternal and maternal Heart attack Paternal Grandfather Diabetes Paternal Grandmother [place] Ovarian cancer Neg Hx Uterine cancer Neg Hx Relation Name Status Comments Aunt Alive Daughter Alive Father Maternal Grandfather Maternal Grandmother Mother [...] Sign Reading Time Taken Comments Blood Pressure 122/74 04/21/2025 1:01 PM EDT Pulse 75 04/21/2025 1:01 PM EDT Temperature 36.2 C (97.2 F) 04/21/2025 1:01 PM EDT Respiratory Rate 16 04/21/2025 1:01 PM EDT Oxygen Saturation 97% 04/21/2025 1:01 PM EDT Inhaled Oxygen Concentration - - Weight 103 kg (227 lb 8 oz) 04/21/2025 1:01 PM E DT Height 172.7 cm (5' 8 ) 04/21/2025 1:01 PM EDT Body Mass Index 34.59 04/21/2025 1:01 PM EDT Plan of Treatment Upcoming Encounters Date Type Department Care Team (Late st Contact Info) Description 05/21/2025 3:20 PM EDT Appointment Radiology Department [address] [phone] Health Maintenance Due Date Last Done Comments Pneumococcal Vaccine: Pediatrics (0 to 5 Years) and At-Risk Patients (6 to 49 Years) (1 of 2 - PCV) 1994 Social Influencers of Health Screening 08/20/2022 COVID-19 Vaccine ( season) 2024 06/04/2021, 05/04/2021 Depression Screening 09/11/2024 11/08/2023 Influenza Vaccine (#1) 2025 3, 06/11/2018, 06/13/2016, Additional history exists Breast Cancer Screening 06/12/2025 06/12/20 23, 04/23/2022, [...] age to complete this topic Meningococcal B Vaccine Aged Out No l onger eligible based on patient's age to complete this topic RSV Immunization Patients Under 20 months Aged Out No longer eligible based on patient's age to complete this topic Varicella Vaccines Aged Out No longer eligible based on patient's age to complete this topic Procedures Procedure Name Priority Date/Time Associated Diagnosis Comments BORRELIA BURGDORFERI ANTIBODY Routine 04/21/2025 1:26 PM EDT Muscle weakness THYROID STIMULATING HORMONE Routine 03/31/2025 7:37 AM EDT Hypothyroidism, unspecified type THYROXINE FREE Routine 03/31/2025 7:37 AM EDT Hypothyroidism, unspecified type IN ARTHROCENTESIS/ASPIRA TION/INJECTION INTERMEDIATE JOINT/BURSA WO U/S GUID Routine 02/27/2025 3:30 PM EDT Left wrist pain LIPID PANEL Routine 06/05/2024 HM DEPRESSION SCREENING Routine 11/08/2023 SCREENING MAMMOGRAPHY BI 2-VIEW BREAST INC CAD Routine 06/12/2023 4:38 PM EDT Encounter for screening mammogram for malignant neoplasm of breast COLONOSCOPY Routine 06/13/2022 HPV Routine 11/16/2020 HEPATITIS C SCREENING Routine 06/22/2015 HIV SCREENING Routine 06/22/2015 from Last 3 Months or Most Recently Relevant to Health Maintenance Results * Borrelia burgdorferi antibody (04/21/2025 1:26 PM EDT) Pathologist [facility] Lyme Ab Negative Negative LAB CHEMISTRY METHOD 04/22/2025 12:30 PM EDT [facility] Comment: No laboratory evidence of infection with B. burgdorferi (Lyme disease). Negative results may occur in patients recently infected (<=14 days) with B. burgdorferi. If recent infection is suspected, repeat testing on a new sample collected in 7- 14 days is recommended. Blood Venous blood specimen / Unknown Venipuncture / Unknown 04/21/2025 1:26 PM EDT 04/21/2025 1:26 PM EDT us Yadira Marcano MD LAB BLOOD ORDERABLES Final Resul t [facility] [address] [place] [address], * Thyroid stimulating hormone (03/31/2025 7:37 AM EDT) Pathologist [facility] TSH 3.77 0.40 - 4.00 mcIU/mL LAB CHEMISTRY METHOD 03/31/2025 2:07 PM EDT [facility] Blood Venous blood specimen / Unknown Venipuncture / Unknown 03/31/2025 7:37 AM EDT 03/31/2025 7:37 AM EDT Natividad Silver MD LAB BLOOD ORDERABLES Final Resul t Performing Organization Address [facility]/ZIP Co de Phone Number [facility] [address] [place] [address], [place] [phone] * Thyroxine free (03/31/2025 7:37 AM EDT) Free T4 1.29 0.70 - 1.80 ng/dL LAB CHEMISTRY METHOD 03/31/2025 2:07 PM EDT [facility] Blood Venous blood specimen / Unknown Venipuncture / Unknown 03/31/2025 7:37 AM EDT 03/31/2025 7:37 AM EDT Natividad Silver MD LAB BLOOD ORDERABLES Final Resul t Performing Organization Address [facility] Co de Phone Number [facility] [address] [place] [address], [place] [phone] * IN ARTHROCENTESIS/ASPIRATION/INJECTION INTERMEDIATE JOINT/BURSA WO U/S GUID (02/27/2025 3:30 PM EDT) Narrative Kelly Gan PA - 02/27/2025 3:30 PM EDT [place] Elder 02/28/2025 7:53 AM M Inj/Asp: L ulnocarpal Indications: pain Details: 25 G needle, dorsal approach Medications: 0.5 mL lidocaine 1 %; 40 mg triamcinolone acetonide 40 mg/mL Informed Consent: Laterality: Left Relevant images/test results available and reviewed: yes Health status cleared: Yes Procedure/treatment, purpose, treatment alternatives, risks/potential complications and benefits explained: yes Risk/complications/benefits details: Risks of infection, thinning of the skin and temporary skin discoloration discussed. Discussed risks of temporary increased pain after injection and swelling and mild redness at injection site for couple days. Explained occasionally cortisone injection can cause facial flushing temporarily. Benefits pain management. For postop injection pain ice, Tylenol and/or NSAIDs if patient can take Patient questions answered: yes Patient agrees, verbalizes understanding, and wants to proceed: yes Consent given by: Patient Informed consent discussion completed by Physician/BALDEV with patient: Verbal Pre-procedure timeout performed: yes Kelly VINCENT IN CLINIC/BEDSIDE ORDERABLES Final Result * (ABNORMAL) Lipid panel (06/05/2024) LDL/HDL Ratio 4 0 - 4 Triglycerides 146 0 - 150 mg/dL Cholesterol 275(A) 0 - 200 mg/dL HDL 75 >=40 mg/dL LDL Cholesterol 171(A) 0 - 100 mg/dL Blood Venous blood specimen / Unknown Result [facility] Historical Provider LAB BLOOD ORDERABLES Dang l Result * Depression Screening (11/08/2023) Depression Screening abstracted Result [facility] Historical Provider HEALTH MAINTENANCE Final Result * [...] in conjunction with computer aided detection. Tomosynthesis as well as 2D C-View imaging were obtained. Comparison: April 23, 2022 and November 26, 2020 Breast composition: There are scattered areas of fibroglandular density. Bilateral breasts: No significant masses, suspicious calcifications or other abnormalities are seen in either breast. IMPRESSION: Impression: Bilateral breasts: Negative, no specific mammographic evidence of malignancy. Normal interval follow-up is recommended in 12 [...] XR PROCEDURES Final Result * Colonoscopy (06/13/2022) [facility] Colonoscopy no interpretation , abstracted Anatomical Region Laterality Modality Other [facility] Provider HEALTH MAINTENANCE Final Result * Cervical Cancer Screening: HPV (11/16/2020) [facility] Cervical Cancer Screening: HPV negative, abstracted Result [facility] Provider HEALTH MAINTENANCE Final Result * HIV Screening (06/22/2015) [facility] HIV Screening abstracted [facility] Provider HEALTH MAINTENANCE Final Result * Hepatitis C Screening (06/22/2015) [facility] Hepatitis C Screening abstracted [facility] Provider HEALTH MAINTENANCE Final Result from Last 3 Months or Most Recently Relevant to Health Maintenance Insurance [employer]ICA[employer] [place] [id number] Care Teams Twitchell Operator Relationship Specialty Start Date End Date Yadira Marcano MD [address] [place] [address] PCP - General Internal Medicine 08/17/20
--- OUTSIDE RECORDS SUMMARY | 2025-05-05 09:10 | XMS_ITS ---
Author Name [facility] Organization Unknown Care Team Organization Name Specialty Phone Email Start Date End [facility] Yadira Marcano Primary Care 07/19/2022 4
== END 2025-05-05 09:14 | disposition home or self-care (01) ==
LOC: HO.HSM 08:40
PROVIDERS: PCP Internal Medicine; Visit Provider Psychiatry & Neurology Neurology
DX: G43.009 Migraine without aura, not intractable, without status migrainosus (principal); F45.0 Somatization disorder; G72.9 Myopathy, unspecified
CPT/HCPCS: 99203

== ENCOUNTER 2025-05-21 14:42 | Outpatient (REF) | payer OTHER, SELFPAY ==
--- NOTE | 2025-05-21 14:44 | EMG_ITS ---
Chief complaint: Twitching, weakness, difficulty walking Reason for referral: Myopathy Referred by:?Dr Coley Procedure done: Right upper and right lower extremities NCS/EMG Right median and ulnar motor and sensory studies were performed right tibial and peroneal motor studies were performed. Right median and ulnar sensory mixed, radial sensory, and median and lateral antecubital brachial sensory studies were performed. Right superficial peroneal and sural sensory studies were performed tibial H-reflex was obtained an EMG needle examination was performed. This study did not reveal any significant abnormality. Impression: No significant abnormality noted on this study. MTDD
--- OUTSIDE RECORDS SUMMARY | 2025-05-21 17:57 | XMS_ITS | Encounter Summary ---
Author Organization [facility] Address [address] [place] [address] Phone Care Team Providers Care Electro Mechanical Assembler Name Role Phone Yadira Marcano MD Primary Care Provider Encounter Details Date Type Department Care Team (Late st Contact Info) Description 01/01/2021 Ancillary Orders [facility] [place] [address] [place] [address] Nikhil Castillo, DO [address] [facility] [address] [place] [address] [email or web address] Social History Tobacco Use Types Packs/Day Years Used Date Smoking Tobacco: Never Assessed Comments Unknown Sex and Gender Information Value Date Recorded Sex Assigned at Not on file Legal Sex Female 8:43 AM EDT Gender Identity Not on file Sexual Orientation Not on file documented as of this encounter Plan of Treatment Not on file documented as of this encounter Visit Diagnoses Not on filedocumented in this encounter Care Teams Electro Mechanical Assembler Relationship Specialty Start Date End Date Yadira Marcano MD [address] [place] [address] PCP - General Internal Medicine 12/23/20 documented as of this encounter Additional Source Comments The information contained in this document represents components of the legal health record. It is not the complete legal health record.[facility]
--- OUTSIDE RECORDS SUMMARY | 2025-05-21 17:57 | XMS_ITS | Encounter Summary ---
Author Organization [facility] Address [address] [place] [address] Phone Care Team Providers Care Corporate Director Talent Assessment Name Role Phone Yadira Marcano MD Primary Care Provider Encounter Details Date Type Department Care Team (Latest Contact Info) Description 01/01/2021 Ancillary Orders [facility] [address] [place] [address] Nikhil Castillo DO [address] [place] [address] [email or web address] SOB (shortness of breath) Social History [...] No abnormal arrhythmias. Conclusion: Normal Holter monitor. us Nikhil Sukhjinder Anna PER[facility] ORDERABLE S Final Result documented in this encounter Visit Diagnoses Diagnosis SOB (shortness of breath) Shortness of breath SOB (shortness of breath) Shortness of breath documented in this encounter Care Teams Corporate Director Talent Assessment Relationship Specialty Start Date End Date Yadira Marcano MD [address] [place] [address] PCP - General Internal Medicine 12/23/20 documented as of this encounter Additional Source Comments The information contained in this document represents components of the legal health record. It is not the complete legal health record.[facility]
--- OUTSIDE RECORDS SUMMARY | 2025-05-21 17:57 | XMS_ITS | Clinical Summary ---
Author Organization [facility] Address [address] [place] [address] Phone Care Team Providers Care Aircraft Stress Analyst Name Role Phone Yadira Marcano MD Primary Care Provider [phone] Social History Tobacco Use Types Packs/Day Years [...] file Medical Devices Not on file Insurance [facility] ACO [facility] [employer] ALLANCE ACO [facility] [employer] ALLANCE ACO [facility] ALL[facility] ACO [facility] ALLANCE ACO [facility] ALLANCE [facility]CO [facility] [employer] ALLANCE ACO [facility] ALLANCE ACO Care Teams Aircraft Stress Analyst Relationship Specialty Start Date End Date Yadira Marcano MD [address] [place] [address] PCP - General Internal Medicine 12/23/20 Additional Source Comments The information contained in this document represents components of the legal health record. It is not the complete legal health record.[facility]
--- OUTSIDE RECORDS SUMMARY | 2025-05-21 17:57 | XMS_ITS | Clinical Summary ---
Author Organization [facility] Address [address] [place] [address] Phone Care Team Providers Care Beveller Operator Name Role Phone Yadira Marcano MD Primary Care Provider [phone] Allergies Active Allergy Reactions Criticality Noted Date [...] each day. (Castro Gallardo) 06/11/20 24 Active nutgg-7z-wfh-e pa-fish oil-D3 1,250 mg-1,375 mg-25 mcg capsule Take by mouth. [place] 3 340 MG CAPSULE DELAYED RELEASE Active triamcinolone (KENALOG) 0.025 % cream Apply topically 2 (two) times a day. to skin 02/14/20 19 Active albuterol sulfate (VENTOLIN HFA INHL) Take 1 vial by nebulization every 4 (four) hours if needed. for Wheezing for up to 180 days. - albuterol (PROVENTIL) (2.5 MG/3ML) 0.083% nebulizer solution Active Tirosint 50 mcg capsuleIndicat ions:Hypothyro idism, unspecified type Take 1 capsule (50 mcg total) by mouth 1 (one) time each day. Brand name only 90 capsule 3 04/10/20 25 Active lisdexamfetami ne (VYVANSE) 30 mg capsule [...] for muscle spasms. 06/05/20 24 2024 Discontinued Active Problems Problem Noted Date Diagnosed Date [...] 1:15 PM EDT Office Visit Adult Medicine [address] [address] Yadira Marcano MD Muscle weakness (Primary Dx); Other hyperlipidemia; Acquired hypothyroidism; Fibromyalgia 04/21/2025 Telephone Adult Medicine [address] [address] Yadira Marcano MD 04/10/2025 3:45 PM EDT Office Visit Endocrinology [address] [phone] Natividad Silver MD Hypothyroidism, unspecified type 04/02/[address] [address] Natividad Silver MD 02/27/2025 3:30 PM EDT Consult Orthopedic Surgery - [address] [place] [address] Kelly Gan PA Left wrist pain from Last 3 Months Immunizations Name Administration Dates Next Due DTaP (Infanrix) 6wks to less than 7yo ,02/06/1979,02/23/1976,1975,1975 Hepatitis B (Ddwvkza-F-Pnpzf , Recombivax HB-Adult) 19yo and older 11/28/2011,05/27/2011,04/22/2011 [...] Heart attack Paternal Grandfather Diabetes Paternal Grandmother [place] Ovarian cancer Neg Hx Uterine cancer Neg [...] 04/21/2025 1:01 PM EDT Plan of Treatment Health Maintenance Due Date Last Done Comments Pneumococcal Vaccine: 50+ Years (1 of 2 - PCV) 1994 Social Influencers of Health Screening 08/20/2022 Depression Screening 09/11/2024 11/08/2023 COVID-19 Vaccine (3 - season) 2025 06/04/2021, 05/04/2021 Influenza Vaccine (#1) 2025 3, 06/11/2018, 06/13/2016, Additional history exists Zoster Vaccines (1 of 2) 2025 Breast Cancer Screening 06/12/2025 06/12/20 23, 04/23/2022, [...] 03/31/2025 7:37 AM EDT Hypothyroidism, unspecified type IA ARTHROCENTESIS/ASPIRA TION/INJECTION INTERMEDIATE JOINT/BURSA WO U/S GUID Routine 02/27/2025 3:30 PM EDT Left wrist pain LIPID PANEL Routine 06/05/2024 DEPRESSION SCREENING Routine [...] Borrelia burgdorferi antibody (04/21/2025 1:26 PM EDT) [facility] Lyme Ab Negative Negative LAB CHEMISTRY METHOD 04/22/2025 12:30 PM EDT [facility] Comment: No laboratory evidence of infection with B. burgdorferi (Lyme disease). Negative results may occur in patients recently infected (<=14 days) with B. burgdorferi. If recent infection is suspected, repeat testing on a new sample collected in 7- 14 days is recommended. Blood Venous blood specimen / Unknown Venipuncture / Unknown 04/21/2025 1:26 PM EDT 04/21/2025 1:26 PM EDT Yadira Marcano MD LAB BLOOD ORDERABLES Final Resul t [facility] [address] [place] [address], * Thyroid stimulating hormone (03/31/2025 7:37 AM EDT) [facility] TSH 3.77 0.40 - 4.00 mcIU/mL LAB CHEMISTRY METHOD 03/31/2025 2:07 PM EDT [facility] Blood Venous blood specimen / Unknown Venipuncture / Unknown 03/31/2025 7:37 AM EDT 03/31/2025 7:37 AM EDT Natividad Silver MD LAB BLOOD ORDERABLES Final Resul t [facility] [address] [place] [address], [place] [phone] * Thyroxine free (03/31/2025 7:37 AM EDT) [facility] Free T4 1.29 0.70 - 1.80 ng/dL LAB CHEMISTRY METHOD 03/31/2025 2:07 PM EDT [facility] Blood Venous blood specimen / Unknown Venipuncture / Unknown 03/31/2025 7:37 AM EDT 03/31/2025 7:37 AM EDT Natividad Silver MD LAB BLOOD ORDERABLES Final Resul t [facility] [address] [place] [address], [place] [phone] * IA ARTHROCENTESIS/ASPIRATION/INJECTION INTERMEDIATE JOINT/BURSA WO U/S GUID (02/27/2025 3:30 PM EDT) Kelly Hughes PA - 02/27/2025 3:30 PM EDT [place] [...] mg/dL Blood Venous blood specimen / Unknown Ronald Provider LAB BLOOD ORDERABLES Dang l Result [...] Category 1: Negative Procedure Note Geri Linares - 10/16/2023 This is a summary report. [...] XR PROCEDURES Final Result * Colonoscopy (06/13/2022) Colonoscopy no interpretation , abstracted Anatomical Region Laterality Modality Other Historical Provider HEALTH MAINTENANCE Final Result * Cervical Cancer Screening: HPV (11/16/2020) Pathologist [facility] Cervical Cancer Screening: HPV negative, abstracted Historical Provider HEALTH MAINTENANCE Final Result * HIV Screening (06/22/2015) Pathologist [facility] HIV Screening abstracted Historical Provider HEALTH MAINTENANCE Final Result * Hepatitis C Screening (06/22/2015) Pathologist [facility] Hepatitis C Screening abstracted Historical Provider HEALTH MAINTENANCE Final Result from Last 3 Months or Most Recently Relevant to Health Maintenance Insurance [facility] Care Teams Beveller Operator Relationship Specialty Start Date End Date Yadira Marcano MD [address] [place] [address] PCP - General Internal Medicine 08/17/20
--- OUTSIDE RECORDS SUMMARY | 2025-05-21 17:57 | XMS_ITS | Encounter Summary ---
Author Organization [facility] Address [address] [place] [address] Phone Care Team Providers Care System Manager Name Role Phone Yadira Marcano MD Primary Care Provider [phone] Encounter Details Date Type Department Care Team (Late st Contact Info) Description 01/01/2021 Procedure [facility] [address] [place] [address] Social History Tobacco Use Types Packs/Day Years [...] on filedocumented in this encounter Care Teams System Manager Relationship Specialty Start Date End Date Yadira Marcano MD [address] [place] [address] PCP - General Internal Medicine 12/23/20 documented as of this encounter Additional Source Comments The information contained in this document represents components of the legal health record. It is not the complete legal health record.[facility]
== END 2025-05-21 14:43 | disposition home or self-care (01) ==
LOC: HO.NEURO 14:42
PROVIDERS: PCP Internal Medicine; Visit Provider Psychiatry & Neurology Neurology
DX: G72.9 Myopathy, unspecified (principal)
CPT/HCPCS: 95886; 95913

== ENCOUNTER → 2025-05-21 14:44 | Outpatient (BNV) | payer OTHER, SELFPAY | PROVIDERS: PCP Internal Medicine; Visit Provider Psychiatry & Neurology Neurology | DX: G72.9 Myopathy, unspecified (principal) | CPT/HCPCS: 95886; 95913 ==

== ENCOUNTER 2025-07-30 14:42 | Outpatient (AMB) | payer OTHER, SELFPAY ==
--- NOTE | 2025-07-30 14:45 | MHC.OFFVIS ---
Intake Visit Reasons: results Allergies cephalexin (Keflex) Allergy (Intermediate, Verified 12/04/24 15:19) rash metronidazole (Flagyl) Allergy (Intermediate, Verified 12/04/24 15:19) vomiting Sulfa (Sulfonamide Antibiotics) (SULFA (SULFONAMIDE ANTIBIOTICS)) Allergy (Intermediate, Verified 12/04/24 15:19) HIVES adhesive tape (ADHESIVE TAPE) Allergy (Unknown, Verified 12/04/24 15:19) RASH hydromorphone (From DILAUDID) Allergy (Unknown, Verified 12/04/24 15:19) SEVERE VOMITING latex (LATEX) Allergy (Unknown, Verified 12/04/24 15:19) RASH Penicillins (PENICILLINS) Allergy (Unknown, Verified 12/04/24 15:19) HIVES HPI Comments Details: The patient is a 50-year-old female presenting for a neurology follow-up visit regarding her chronic neck and back pain. Her primary complaints are neck pain, back pain, and right hip pain, which she believes stem from her neck and back. The patient reports a history of a spinal injury 13-14 years ago, with ongoing issues since that time. The patient was referred to neurology after a recent ER visit for a muscular issue during which she was unable to walk. The ER physician expressed concern for myasthenia gravis, though the patient does not believe this is the cause of her symptoms. The patient reports a diagnosis of fibromyalgia made 14 years ago. She experiences headaches related to tight muscles in her neck, with pain radiating up to her skull, which she describes as a knot. She has also been seen at [facility], with diagnoses including sacroiliac joint issues and hip bursitis, and is currently awaiting a pelvic MRI. Her medications for pain include Mobic taken nightly, Lyrica 150 mg, and Cymbalta. Her other providers are considering adding a 25 mg dose of Lyrica as needed. Past interventions include physical therapy and treatment from a neuromuscular chiropractor. SI joint injections were previously recommended, but she was nervous and did not proceed. A recent EMG was normal and did not show evidence of cervical or lumbar radiculopathy, despite previous MRI reports mentioning degenerative changes. 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 She previously walked at least half a mile daily but stopped due to the current flare-up of her hip and back pain. [facility] Medical History (Updated 07/30/25 @ 14:59 by Glen Randall MD) Migraine without aura Psoriasis Fibromyalgia Family History Mother Rheumatoid arthritis Family/Other Multiple sclerosis Other Family history of thyroid disease Social History Alcohol intake: never Patient Tobacco Use Status: Former Tobacco user Years Smoked: qUIT 6 YEARS AGO Review of Systems Narrative - Musculoskeletal: Reports chronic pain in the neck, back, and right hip. - Neurological: Reports headaches originating from tight neck muscles and radiating to the base of the skull, feeling like a knot. - General: Reports being overweight. - Integumentary: Reports loss of skin color due to a new autoimmune condition. Physical Exam Neuro Other: Mental Status: Alert and oriented to person, place, and time. Normal attention. Normal spontaneous speech, fluency, and comprehension. Cranial Nerves: CN II: Visual norton full to confrontation, visual acuity intact. CN III, IV, : Pupils equal, round, reactive to light and accommodation. Extraocular movements are normal. CN V: Facial sensation is normal. CN VII: Facial movements symmetrical. CN VIII: Hearing intact to bedside conversation is normal. CN IX, X: Palate elevates symmetrically. CN XI: Shoulder shrug and head turn symmetrical. CN XII: Tongue midline without atrophy or fasciculations. Extrapyramidal: Full facial expressions and blinking. No rigidity. Movements are appropriate with no tremor or abnormality. Speech: Normal; no dysarthria or tremor. Results Reviewed Results Reviewed: Laboratory Tests 05/05/25 09:41 ESR 16 Total Creatine Kinase 59 Vitamin B12 489 Folate 17.0 TSH 3.91 Rheumatoid Factor < 13.0 Acetylchol Rcpt Block Ab <15 Acetylchol Rcpt Bind Ab <0.30 Acetylchol Rcpt Modu Ab 12 HLA-B27 Negative Lyme Screen IgG & IgM <0.90 Assessment & Plan Assessment & Plan (1) Migraine without aura: Comment: EM[place]/[facility] [place] [facility] [place] [facility] [place] Jun 20[place]: WNL Code(s): G43.009 - Migraine without aura, not intractable, without status migrainosus Category: Medical Qualifiers: Status migrainosus presence: without status migrainosus Intractability: not intractable Qualified Code(s): G43.009 - Migraine without aura, not intractable, without status migrainosus Plan I explained to the patient that her recent tests, including an EMG, were normal and did not show a neurological problem like cervical or lumbar radiculopathy. I conveyed that from a neurological standpoint, I am not convinced her symptoms have a neurological basis. I advised her that her current medication regimen with Lyrica and Cymbalta is appropriate. I recommended a holistic approach including massage therapy and daily exercise, and advised caution regarding interventions. We discussed the diagnosis of somatic symptom disorder that was in her chart. After she expressed her disagreement with it, I agreed to remove the diagnosis. I instructed her to bring the actual CD of her imaging studies for any future visits and to return to my clinic only if upcoming pelvic MRI reveals a neurological issue. Coding Level of Care Code Est Pt Level 4 (00705) Diagnoses Migraine without aura and without status migrainosus, not intractable G43.009 Status migrainosus presence: without status migrainosus Intractability: not intractable
--- OUTSIDE RECORDS SUMMARY | 2025-07-31 03:15 | XMS_ITS | Clinical Summary ---
Author Organization [facility] Address [address] [place] [address] Phone Care Team Providers Care Line Service Supervisor Name Role Phone Yadira Marcano MD Primary Care Provider [phone] Social History Tobacco Use Types Packs/Day Years [...] file Medical Devices Not on file Insurance [facility] ACO [facility] [employer] ALLANCE ACO [facility] [employer] ALL[facility] ACO [facility] ALL[facility] ACO [facility] ALLANCE ACO [facility] ALLANCE ACO [facility] [employer]ANCE ACO [facility] ALLANCE ACO Care Teams Line Service Supervisor Relationship Specialty Start Date End Date Yadira Marcano MD [address] [place] [address] PCP - General Internal Medicine 12/23/20 Additional Source Comments The information contained in this document represents components of the legal health record. It is not the complete legal health record.[facility]
--- OUTSIDE RECORDS SUMMARY | 2025-07-31 03:15 | XMS_ITS | Encounter Summary ---
Author Organization [facility] Address [address] [place] [address] Phone Care Team Providers Care Interior Paneler Name Role Phone Yadira Marcano MD Primary Care Provider [phone] Encounter Details Date Type Department Care Team (Latest Contact Info) Description 01/01/2021 Ancillary Orders [facility] [address] [place] [address] Nikhil Castillo DO [address] [place] [address] [email or web address] SOB (shortness of breath) Social [...] breath documented in this encounter Care Teams Interior Paneler Relationship Specialty Start Date End Date Yadira Marcano MD [address] [place] [address] PCP - General Internal Medicine 12/23/20 documented as of this encounter Additional Source Comments The information contained in this document represents components of the legal health record. It is not the complete legal health record.[facility]
--- OUTSIDE RECORDS SUMMARY | 2025-07-31 03:15 | XMS_ITS | Encounter Summary ---
Author Organization [facility] Address [address] [place] [address] Phone Care Team Providers Care Supervisor Policy Change Clerks Name Role Phone Yadira Marcano MD Primary Care Provider [phone] Encounter Details Date Type Department Care Team (Late st Contact Info) Description 01/01/2021 Ancillary Orders [facility] [place] [address] [place] [address] Nikhil Castillo, DO [address] [facility] [place] [address] [email or web address] Social History Tobacco Use Types Packs/Day Years [...] filedocumented in this encounter Care Teams Supervisor Policy Change Clerks Relationship Specialty Start Date End Date Yadira Marcano MD [address] [place] [address] PCP - General Internal Medicine 12/23/20 documented as of this encounter Additional Source Comments The information contained in this document represents components of the legal health record. It is not the complete legal health record.[facility]
--- OUTSIDE RECORDS SUMMARY | 2025-07-31 03:15 | XMS_ITS | Encounter Summary ---
Author Organization [facility] Address [address] [place] [address] Phone Care Team Providers Care Button Puncher Name Role Phone Yadira Marcano MD Primary Care Provider [phone] Encounter Details Date Type Department Care Team (Late st Contact Info) Description 01/01/[address] [facility] [address] [place] [address] Social History Tobacco Use Types Packs/Day Years [...] on filedocumented in this encounter Care Teams Button Puncher Relationship Specialty Start Date End Date Yadira Marcano MD [address] [place] [address] PCP - General Internal Medicine 12/23/20 documented as of this encounter Additional Source Comments The information contained in this document represents components of the legal health record. It is not the complete legal health record.[facility]
--- OUTSIDE RECORDS SUMMARY | 2025-07-31 03:15 | XMS_ITS | Data Portability ---
Author Organization [facility] Address [address] [facility],[address] [address] Assessment Encounter Date Assessment Date Assessment LastModified [...] . She is currently being seen at [facility] and receiving injections. I [...] By Organization Details Last Modified Time 01/26/2017 [id number] She was advised to continue with activities as tolerated . [email or web address] Not available 03/09/2017 15:41:42 Reason for Referral None Reported. Procedures Surgical History Date Name Laterality Status Provider Name and Address Organization Details Recorded Time Tonsillectomy completed [facility] 01/26/2017 14:06:14 Imaging Results None recorded. Procedure Notes None recorded. Medical Equipment None Reported. Allergies Allergen ID Allergen Name Allergen Category Reaction Reaction Severity Criticality Documentation Date Start Date Code Code System Note Provider Name and Address Organization Details Recorded Time 49289 Product containin g penicilli n (product) medicatio n hives Not available Not available 01/26/2017 56470 8001 SNOMED Karena Bowdengiorgio turcios [facility] 7 13:57:47 71350 Substance with sulfonami de structure and antibacte rial mechanism of action (substanc e) medicatio n hives Not available Not available 01/26/2017 64630 8003 SNOMED Karena Bowdengiorgio turcios [facility] 7 13:58:06 Medications Name Sig [...] Vitals Date Recorded Heart rate Oxygen saturation Body height Body weight Body mass index (BMI) Systolic And Diastolic Provider Name and Address Organization Details Last Updated DateTime 7 77 /min 98 % 172.72 cm 217945. 17 g 36.5 kg/m2 129/85 mm[Hg] Karena Bowdenzier [place] [facility] 7 13:55:34 Social History Question Answer Notes LastModified by Organizat [employer] Details LastModified Time Tobacco Smoking Status Former Smoker Quit x 2 months Not Available [employer] 06/26/2020 03:16:12 Which Illicit Or Recreational Drugs Have You Used? NO [id number] Information not available 06/26/2020 Education 12 With Some College/ [place] Information not available 01/26/2017 Live Alone Or With Others? With Others Children Information not available 01/26/2017 Marital Status Informatio n not available 01/26/2017 How Many Years Have You Smoked Tobacco? 5 [id number] Information not available 06/26/2020 Sex: Unknown Functional Status Question Answer Note LastModified by Organizat [employer] Details LastModified Time What is your level of alcohol consumption? Occasional [id number] Information not available 06/26/2020 Are you currently employed? 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 Family History Relationship [...] Diagnosis SNOMED-CT Code Diagnosis ICD10 Code Diagnosis IMO Codes Diagnosis Note [id number] Liliana Merino MD PAIN OFFICE [address] [facility],[address] [place] [address] 01/26/2017 13:24:53 02/16/2017 13:54:26 Degeneration of cervical intervertebral disc 92020165 M50.30 Cervical radiculopathy 55384805 M54.12 Muscle pain 56687295 M79 .1 Health Concerns Section Related Observation LastModified by Organization Detai ls LastModified Time None Recorded Concern Status LastModified by Organization Details LastModified Time None Recorded Advance Directives Directive None Recorded Payers Insurance Date Sequence Insurance Name Policy Number Policy Olvera Covered Member ID Olvera Member ID Guarantor Name 05/12/2017 1 [facility] (PP[facility] [id number] Danyelle Johnson [id number] Danyelle Johnson 01/27/[address] (PPO) [id number] Danyelle Johnson [id number] Danyelle Johnson 05/12/2017 1 [place] [facility] Danyelle Johnson [id number] Danyelle Johnson Notes Date Note Type Note [...] or bowel incontinence.She had physical therapy at [facility] in [place] with minimal pain benefit.She had facet joint injections at [facility] and then trigger point injections in November 2016.She has also trialed lyrica which helped .MRI Cervical spine shows stable minimal degenerative changes at C5-6 and C6-7 levels Liliana Merino MD [address] , [address], [place], [address], [facility] 03/15/2017 08:36:38 OBGyn Episode No OBEpisode recorded.
--- OUTSIDE RECORDS SUMMARY | 2025-07-31 03:15 | XMS_ITS | Data Portability ---
Author Organization [place] - [facility], Allergy Address [address] [place] [id number] Care Team Providers Care Television Production Clerk Name Role Phone ESTEPHANIE SHAW Primary Care Provider [phone] Assessment Encounter Date Assessment Date Assessment LastModified [...] Office biopsy limited by moderate gag reflex [email or web address] Not available 09/26/2024 08:52:42 Plan of Treatment Reminders Order Date Submit Date Provider Last Modified By Organization Details Last Modified Time Details Appointments None recorded. Lab None recorded. Referral None recorded. Procedures allergy testing, skin prick (PROC) 2024 025 [email or web address] Not available 12:17:48 intradermal allergy skin testing (PROC) 2024 025 [email or web address] Not available 12:17:48 pulmonary function test procedure (PROC) 2024 025 [email or web address] Not available 5 12:17:48 pulse oximetry (PROC) 2024 025 [email or web address] Not available 5 12:17:48 Surgeries laryngoscop y, direct operative with operating microscope or telescope with biopsy (SURG) 2024 025 [email or web address] Not available 10:05:59 Imaging None recorded. Medication Orders budesonide 32 mcg/actuati on nasal spray 2024 025 [facility]/Pharmacy #[id number], [address] [facility] [place], [address], 5 08:54:12 cetirizine 10 mg tablet 2024 025 [facility]/Pharmacy #[id number], [address] [facility] [place], [address], 5 08:54:12 Patient TargetsNo targets recorded. 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 Nontoxic single thyroid nodule; Note: Date Diagnosed: 02/21/2018 10:40 AM (E04.1) Not Available [facility] 4 03:22:43 Allergic rhinitis 48247646 Active 2024 MUSHTAQ STOCK MD [address], [place], [address] , [place] - [facility] 5 08:52:53 Lesion of pharynx Active 2024 MUSHTAQ STOCK MD [address], [place], [address] , [place] - [facility] 5 08:53:00 Mild intermitt ent asthma 674619583 Active 2024 MUSHTAQ STOCK MD [address], [place], [address] , [place] [facility] 08:53:05 Problem Notes None recorded. Procedures Surgical History Date Name Laterality Status Provider Name and Address Organization Details Recorded Time 11/05/19 Excise pharynx lesion completed MUSHTAQ AYALA MD [address] [facility] [address] [address], [place], [address], [facility] 11/05/2024 11:38:43 11/05/19 Laryngoscopy w/bx & op scope completed MUSHTAQ AYALA MD [address] [facility] [address] [address], [place], [address], [facility] 11/05/2024 11:38:53 Imaging Results None recorded. Procedure Notes None recorded. Medical Equipment None Reported. Allergies Allergen ID Allergen Name Allergen Category Reaction Reaction Severity Criticality Documentation Date Start Date Code Code System Note Provider Name and Address Organization Details Recorded Time 796664 Product containin g penicilli n (product) medicatio n hives other moderate Not available Not available 01/23/2024 00015 8001 SNOMED Gil turcios [facility] 5 08:37:12 154166 Substance with sulfonami de structure and antibacte rial mechanism of action (substanc e) medicatio n hives other moderate Not available Not available 01/23/2024 91162 8003 SNOMED Gilzachariah Reyes [place], [place] - [facility] 5 08:37:12 827651 Flagyl medicatio n hives moderate Not available 09/26/2024 63061 6 RxNorm Gil Eric turcios, [place] - [facility] 5 08:37:12 990209 Dilaudid medicatio n vomiting severe Not available 09/26/2024 80064 3 RxNorm Gilzachariah turcios, [place] - [facility] 5 08:37:12 Medications Name Sig Start Date [...] mg tablet 01/28 completed Medicati on ID: [id number] D uration Value: 30 Brand Name: amitript yline Se nd Method: E-Prescr ibed Sub s Allowed: subs OK Speci al Instruct ion: TAKE 1 TABLET BY MOUTH TWICE A DAY Medi cationGe nericNam e: amitript yline Not Available Not Available Not Available diazepam 2 mg tablet 01/28 completed Medicati on ID: [id number] B rand Name: diazepam Send Method: E-Prescr [...] layed release 01/28 completed Medicati on ID: [id number] B rand Name: diclofen ac sodium S end Method: E-Prescr ibed Sub s Allowed: subs [place] [facility] diclofen ac sodium Not Available [...] mg tablet 01/28 completed Medicati on ID: [id number] B rand Name: escitalo pram oxalate Send Method: E-Prescr ibed Sub s Allowed: subs [place] [facility] : escitalo pram oxalate Not Available [...] mg capsule 01/28 completed Medicati on ID: [id number] B rand Name: pregabal in Send Method: E-Prescr ibed Sub s Allowed: subs OK [facility] : pregabal in Not Available Not Available Not Available pregabali n 150 mg capsule TAKE 1 CAPSULE BY MOUTH EVERY DAY AT BEDTIME FOR 90 DAYS active Not Available Not Available No t Available Lyrica 100 mg capsule 150 mg every day by oral route. 2021 active Not Available Not Available Not Avai lable Jen 09/26 completed Medicati on ID: [id number] B rand Name: jen Send Method: E-Prescr ibed Sub s Allowed: subs OK Medic ationGen ericName : jen Not Available Not Available Not Available Cymbalta 2021 active Medicati on ID: [id number] B rand Name: Cymbalta Send Method: E-Prescr ibed Sub s Allowed: subs OK Medic ationGen ericName : Cymbalta Not Available Not Available Not Available omeprazol e 20 mg tablet,de layed release by mouth 09/25 completed Medicati on ID: [id number] P rescribe d By Name: Moy Hansen MD Brand Name: omeprazo le Send Method: E-Prescr ibed Sub s Allowed: subs OK Speci al Instruct ion: Take 1 tablet by mouth every day before breakfas t Medica tionGene ricName: omeprazo le Not Available Not Available Not Available Flonase Allergy Relief active Not Available Not Available Not Available Vitals Date Recorded Systolic And Diastolic Provider Name and Address Organization Details Last Updated DateTime 09/26/2024 118/74 mm[Hg] MUSHTAQ AYALA MD [address] [place] [address], [address], [place] - [facility] 09/26/2024 08:57:24 Date Recorded Body height Body mass index (BMI) Body weight Provider Name and Address Organization Details Last Updated DateTime 09/26/2024 172.72 cm 34.1 kg/m2 711601.69 g Gil Reyes [facility] 09/26/2024 08:43:43 Social History None recorded. Functional Status None recorded. Mental Status None recorded. Family History Nothing Reported. Medical History Condition Response Allergies/Hayfever Y Heart Problems N Anxiety Y Tonsil Infections N Emphysema N Migraines Y Thyroid Problems Y Depression Y COPD N Developmental Delay N Glaucoma N Nasal or Sinus Problems Y Anemia N Immune System Disorder N Anesthesia Complications N Heart Attack (AR) N Other Skin Condition Y Diabetes N Rhinitis N Bleeding Disorder N Food Allergy N Hearing Loss N Arthritis Y Hyperlipidemia N Cancer N Stroke N Dementia N Nasal polyps N Asthma Y Sleep Disorder N High Cholesterol Y GERD/Reflux N Liver Disease N Headaches Y Fibromyalgia Y Hypertension N Speech Delay N Kidney Disease N Gynecological HistoryNo gynecological history recorded. Obstetrics History GPAL:G 0 P 0 0 0 0 Past Encounters Encounter ID Performer Location Encounter Start Date Encounter Closed Date Diagnosis/Indication Diagnosis SNOMED-CT Code Diagnosis ICD10 Code Diagnosis IMO Codes Diagnosis Note [id number] MUSHTAQ STOCK MD [facility] [address] [address] 09/26/2024 08:15:03 09/26/2024 08:58:24 Allergic rhinitis 44432319 J30.9 Lesion of pharynx 725523 5641 2102 J39.2 Mild inter mittent asthma 262230843 J45.20 Health Concerns Section Related Observation LastModified by Organization Detai ls LastModified Time None Recorded Concern Status LastModified by Organization Details LastModified Time None Recorded Advance Directives Directive None Recorded Payers Insurance Date Sequence Insurance Name Policy Number Policy Olvera Covered Member ID Olvera Member ID Guarantor Name 12/31/2024 1 [facility] - [facility] (MEDICAID REPLACEMENT - HMO) [id number] Danyelle Johnson [id number] Danyelle Johnson Notes Date Note Type Note Provider Name and Address Organization Details Recorded Time 09/26/2024 text/html ROS as noted in the HPI Patient with history of environmental allergies for which she takes loratadine and occasional fluticasone nasal spray seen for an opinion regarding lymphoid follicle on the left tonsil region. This was noted several years ago by Dr. Hansen she feels her throat is irritated. No ear pain or swallowing issues. Hx of mild intermittent asthma No fever, chills or night sweatsNon-smoker MUSHTAQ AYALA MD [address], [address], [facility] - [facility] 09/26/2024 13:27:39 OBGyn Episode No OBEpisode recorded.
== END 2025-07-30 15:01 | disposition home or self-care (01) ==
LOC: HO.HSM 14:42
PROVIDERS: PCP Internal Medicine; Visit Provider Psychiatry & Neurology Neurology
DX: G43.009 Migraine without aura, not intractable, without status migrainosus (principal)
CPT/HCPCS: 99214

== ENCOUNTER → 2025-07-30 14:42 | Outpatient (BNVA) | payer OTHER, SELFPAY | PROVIDERS: PCP Internal Medicine; Visit Provider Psychiatry & Neurology Neurology | DX: Z71.2 Person consulting for explanation of examination or test findings (principal); G43.009 Migraine without aura, not intractable, without status migrainosus | CPT/HCPCS: 99212 ==